=== PATIENT | female | born 1930 | race Caucasian/White ===

== ENCOUNTER 2020-08-20 22:11 | Inpatient (IN) | payer MEDICARE, BC ==
[2020-08-20] MEDS ORDERED: NORMAL SALINE 1000 ML 1,000 ML IV ONE (22:33)
--- NOTE | 2020-08-20 22:37 | ER Document Report ---
ED General <BRIGHT DIAMOND - Last Filed: 08/21/20 06:07> <HARRY FLORES - Last Filed: 08/22/20 02:02> - General Chief Complaint: Low Blood Pressure Stated Complaint: LOW BLOOD PRESSURE Time Seen by Provider: 08/20/20 22:24 Notes: Patient is an 89-year-old female that comes from home by EMS for chief complaint of vomiting, diarrhea, nicky pain, passing out at home. Patient was initially hypotensive in the 70s, EMS gave 1 L bolus of normal saline and started her on Levophed. Upon arrival nursing staff has stopped Levophed and systolic blood pressure is in the 90s. She denies any other complaints. Patient has a history of leukemia, she is on oral chemotherapy, she states she has not eaten anything for the past 3 days because she has no appetite, she states that she vomited once yesterday and then started vomiting again this evening, she states that she felt constipated and bloated so she took some MiraLAX today as well, she states she started having diarrhea and had multiple episodes tonight. She states she passed out briefly on the toilet but denies falling off the toilet or injury. She denies chest pain, fever. She has generalized abdominal soreness with some increased tenderness on the left side. Only other reported past medical history of hypertension, she follows with Dr. Sr in [place] (oncology). (BRIGHT DIAMOND) - Related Data Allergies/Adverse Reactions: alprazolam [From Xanax] Allergy (Unknown, Verified 11/22/13 11:51) Sulfa (Sulfonamide Antibiotics) Allergy (Unknown, Verified 11/22/13 11:51) iodine [Iodine] Allergy (Verified 11/22/13 11:51) COUGHING, DYES Allergy (Uncoded 11/22/13 11:51) RED FACE/EYES WATER Past Medical History - General Information source: Patient - Social History Smoking Status: Never Smoker Frequency of alcohol use: None Drug Abuse: None Lives with: Alone Family History: None - Past Medical History Cardiac Medical History: Reports: Hx Atrial Fibrillation, Hx Hypertension Comment Only: Hx Heart Attack - ??, POSSIBLE WHEN SHE HAD STROKE IN 2007 Pulmonary Medical History: Reports: Hx Asthma Denies: Hx Tuberculosis Neurological Medical History: Reports: Hx Cerebrovascular Accident Malignancy Medical History: Reports: Hx Leukemia GI Medical History: Reports: Hx Gastroesophageal Reflux Disease Past Surgical History: Reports: Hx Appendectomy, Hx Cholecystectomy, Hx Tonsillectomy, Hx Tubal Ligation. Denies: Hx Hysterectomy, Hx Mastectomy - Immunizations Hx Diphtheria, Pertussis, Tetanus Vaccination: Yes <BRIGHT DIAMOND - Last Filed: 08/21/20 06:07> Review of Systems - Review of Systems Constitutional: See HPI EENT: No symptoms reported Cardiovascular: See HPI Respiratory: No symptoms reported Gastrointestinal: See HPI Genitourinary: No symptoms reported Female Genitourinary: No symptoms reported Musculoskeletal: No symptoms reported Skin: No symptoms reported Hematologic/Lymphatic: No symptoms reported Neurological/Psychological: No symptoms reported <BRIGHT DIAMOND - Last Filed: 08/21/20 06:07> Physical Exam <BRIGHT DIAMOND - Last Filed: 08/21/20 06:07> - Vital signs Vitals: Resp BP Pulse Ox 12 94/45 L 98 08/20/20 22:14 08/20/20 22:14 08/20/20 22:14 - Notes Notes: GENERAL: Pale and ill-appearing but still alert and responsive HEAD: Normocephalic, atraumatic. EYES: Pupils equal, round, and reactive to light. Extraocular movements intact. ENT: Oral mucosa dry, tongue midline. Oropharynx unremarkable. Airway patent. NECK: Full range of motion. Supple. Trachea midline. No lymphadenopathy. LUNGS: Clear to auscultation bilaterally, no wheezes, rales, or rhonchi. No respiratory distress. Non-tender chest wall. HEART: Borderline tachycardic, irregularly irregular, no murmur ABDOMEN: Patient significantly tender in the left mid to lower abdomen with some guarding. However remaining abdomen is soft and benign. No overt distention. Bowel sounds present throughout. GENITOURINARY: Deferred EXTREMITIES: Moves all 4 extremities spontaneously. No edema, normal radial and dorsalis pedis pulses bilaterally. No cyanosis. BACK: no cervical, thoracic, lumbar midline tenderness. No saddle anesthesia, normal distal neurovascular exam. Moves all extremities in full range of motion. NEUROLOGICAL: Alert and oriented x3. Normal speech. Cranial nerves II through XII grossly intact. Strength 5/5 in all extremities. PSYCH: Normal affect, normal mood. SKIN: Pale but no rash or other abnormalities noted (BRIGHT DAIMOND) Course - Laboratory Result Diagrams: 08/20/20 22:15 08/20/20 22:15 <BRIGHT DIAMOND - Last Filed: 08/21/20 06:07> - Laboratory Result Diagrams: 08/21/20 16:25 08/20/20 22:15 <HARRY FLORES - Last Filed: 08/22/20 02:02> - Re-evaluation Re-evalutation: Patient is pale, somewhat ill-appearing, tachycardic, atrial fibrillation noted on the monitor and patient is not sure if this is chronic, however she is alert and completely oriented. She has very significant tenderness in the left mid to lower abdomen. She is hypotensive, starting IV fluids. She has been given 1 L IV fluids by EMS already. After 1.5 L of IV fluids hypotension did resolve. Tachycardia resolved. Patient is noted to have a history of atrial fibrillation in the past per records. Chemistry shows mild renal insufficiency, calcium 7.9, bicarbonate 19. Venous blood gas unremarkable. CBC concerning with white blood cells of 1, platelets of 4, hemoglobin of 6.1. I do not have any recent comparison labs since patient has been on chemotherapy. Type and screen performed. Patient did have a nonbloody bowel movement in the emergency department fortunately. She has not had any other source of bleeding. Troponin slightly elevated at 0.14. Patient very specifically states she has not had any chest pain or shortness of breath. She did have a syncopal episode with her vomiting, diarrhea. CT of the abdomen performed without contrast because of initial concerns about an allergy, this shows diverticulitis. Patient has been started on Levaquin and Flagyl, blood cultures are pending, lactic acid is not elevated. I discussed with Dr. Flores, discussed elevated troponin as well, most likely this is secondary to hypotension although this is not definite. However patient would not be a candidate for anticoagulation or intervention because of her severe thrombocytopenia and pancytopenia. Recommendation is discussing with patient's oncologist and will evaluation, transfusion with packed red blood cells and platelets. 08/21/20 00:45 Called [facility] center, pending callback from oncology. 08/21/20 01:[address] Berny Bradshaw, on-call for Dr. Sr (patient's oncologist). She states she agrees with transfusion of blood products and platelets, however she is states that she has no way of accessing the patient's records at the moment and that she is unfamiliar with the patient, she recommends that Dr. Sr can give additional advice starting at 6:30 AM and he can be contacted through their service with phone number [phone]. Patient became hypotensive again with MAP below 65 and systolic in the 70s. Patient is not responding to IV fluid resuscitation which is currently going again. Patient placed on Levophed. Unfortunately we will use our peripheral IVs (we have to good 18-gauge IVs) because of the risk of performing central line with severe thrombocytopenia. I have discussed all details with patient at length. We are still pending transfusion because of patient requiring a radiation because of chemotherapy. Will discuss with ICU for admission. Patient is also with a temperature of 100.2 now. Troponin did trend upwards but EKG was repeated without significant change. Patient has not had any chest pain on reevaluation. Patient accepted to ICU by Mohan Douglass [employer] communications programmer. CTA still pending to evaluate syncopal episode and elevated troponin after patient clarified that she is in fact not allergic to IV dye. (BRIGHT DIAMOND) - Vital Signs Vital signs: Temp Pulse Resp BP Pulse Ox 98.7 F 75 24 H 129/82 H 96 08/21/20 23:42 08/21/20 22:00 08/21/20 22:00 08/21/20 22:00 08/21/20 22:00 - Laboratory Laboratory results interpreted by me: 08/20/20 08/20/20 08/20/20 22:15 22:15 23:41 WBC 1.0 L* RBC 2.08 L Hgb 6.1 L Hct 16.9 L RDW 14.4 H Plt Count 4 L* Lymph % (Auto) 60.1 H [place] % (Auto) 15.2 H Absolute Neuts (auto) 0.2 L Seg Neutrophils % 24.6 L Sodium 130.8 L Carbon Dioxide 19 L BUN 41 H Creatinine 1.31 H Est GFR ( Amer) 46 L Est GFR (MDRD) Non-Af 38 L Glucose 143 H Calcium 7.9 L Total Bilirubin 2.6 H Direct Bilirubin 0.6 H Total Protein 5.0 L Albumin 2.8 L Lipase 18.2 L Urine Protein Urine Ketones Urine Blood Urine Urobilinogen Crossmatch See Detail 08/21/20 01:30 WBC RBC Hgb Hct RDW Plt Count Lymph % (Auto) [place] % (Auto) Absolute Neuts (auto) Seg Neutrophils % Sodium Carbon Dioxide BUN Creatinine Est GFR ( Amer) Est GFR (MDRD) Non-Af Glucose Calcium Total Bilirubin Direct Bilirubin Total Protein Albumin Lipase Urine Protein 30 H Urine Ketones TRACE H Urine Blood SMALL H Urine Urobilinogen 2.0 H Crossmatch - EKG Interpretation by Me Additional EKG results interpreted by me: EKG shows atrial fibrillation at a rate of 105, QTC 476, no T wave inversions or ST segment changes in consecutive leads (BRIGHT DIAMOND) Procedures - Ultrasound/Bedside Ultrasound/Bedside Time completed: 00:45 - 08/21/20 <HARRY FLORES - Last Filed: 08/22/20 02:02> - Ultrasound/Bedside Ultrasound/Bedside Notes: 08/21/20 00:45 Performed bedside cardiac, pulmonary, IVC, aorta ultrasound and FAST exam. Patient's myocardial function was grossly normal without any right heart strain or significant ventricular collapse with systole, no pericardial effusion. Patient's bilateral lungs showed lung sliding and predominant A-lines. IVC was plugged and did not collapse with respiration significantly. Aorta was normal caliber. FAST exam showed no free fluid. Performed ultrasound to assess patient for sources of shock and assess fluid responsiveness which did not show any additional sources of shock and showed that patient could likely tolerate additional fluid but was unlikely to be fluid responsive so pressors were started. (HARRY FLORES) Critical Care Note - Critical Care Note Total time excluding time spent on procedures (mins): 45 - Septic shock, pancytopenia, symptomatic anemia <BRIGHT DIAMOND - Last Filed: 08/21/20 06:07> - Critical Care Note Comments: Please allow 45 minutes of critical care time for evaluation and management of patient with septic shock, acute diverticulitis, leukemia with pancytopenia, symptomatic anemia requiring transfusion. Interventions including IV antibiotics, IV fluid resuscitation, vasopressor, blood and platelet transfusion. Time spent discussing with oncology, time spent discussing with patient, time spent performing multiple reevaluations, time spent admitting to the ICU. (BRIGHT DIAMOND) Discharge - Discharge Admitting Provider: Oscar (Service Consultant) Unit Admitted: ICU <BRIGHT DIAMOND - Last Filed: 08/21/20 06:07> <HARRY FLORES - Last Filed: 08/22/20 02:02> - Discharge Clinical Impression: Pancytopenia, Acute diverticulitis, Elevated troponin Hypotension Qualifiers: Hypotension type: unspecified hypotension type Qualified Code(s): I95.9 - Hypotension, unspecified Episode of syncope Qualifiers: Syncope type: unspecified Qualified Code(s): R55 - Syncope and collapse Leukemia Qualifiers: Leukemia type: acute, unspecified type Leukemia Active/Remission status: without remission Qualified Code(s): C95.00 - Acute leukemia of unspecified cell type not having achieved remission Condition: Serious Disposition: ADMITTED INPATIENT
[2020-08-20 22:52] LABS: ALBUMIN 2.8 g/dL (3.5-5.0); ALKALINE PHOSPHATASE 69 U/L (38-126); ANION GAP 12 (5-19); ASPARTATE AMINO TRANSFERASE 27 U/L (14-36); BILIRUBIN,DIRECT 0.6 mg/dL (0.0-0.4); BILIRUBIN,TOTAL 2.6 mg/dL (0.2-1.3); BLOOD UREA NITROGEN 41 mg/dL (7-20); CALCIUM 7.9 mg/dL (8.4-10.2); CARBON DIOXIDE 19 mmol/L (22-30); CHLORIDE 100 mmol/L (98-107); GLUCOSE 143 mg/dL (75-110); POTASSIUM 3.9 mmol/L (3.6-5.0)
[2020-08-20 22:52] LABS: VENOUS BLOOD BASE EXCESS -3.6 mmol/L; VENOUS BLOOD HCO3 21.3 mmol/L (20-32); VENOUS BLOOD PCO2 37.4 mmHg (35-63); VENOUS BLOOD PH 7.37 (7.30-7.42)
[2020-08-20 22:53] LABS: ABSOLUTE LYMPHOCYTES (AUTO) 0.6 10^3/uL (0.5-4.7); ABSOLUTE MONOCYTES (AUTO) 0.2 10^3/uL (0.1-1.4); ABSOLUTE NEUT (AUTO) 0.2 10^3/uL (1.7-8.2); EOSINOPHILS % (AUTO) 0.1 % (0-6); HEMATOCRIT 16.9 % (36.0-47.0); LYMPHOCYTES % (AUTO) 60.1 % (13-45); MEAN CORPUSCULAR HEMOGLOBIN 29.1 pg (27.0-33.4); MEAN CORPUSCULAR HGB CONC 35.7 g/dL (32.0-36.0); MEAN CORPUSCULAR VOLUME 82 fl (80-97); MONOCYTES % (AUTO) 15.2 % (3-13); RED BLOOD COUNT 2.08 10^6/uL (3.72-5.28); RED CELL DISTRIBUTION WIDTH 14.4 % (11.5-14.0); SEGMENTED NEUTROPHILS % (AUTO) 24.6 % (42-78); TOTAL CELLS COUNTED % (AUTO) 100 %
[2020-08-20 23:20] LABS: HEMOGLOBIN 6.1 g/dL (12.0-15.5)
[2020-08-20 23:38] LABS: PLATELET COUNT 4 10^3/uL (150-450)
[2020-08-20 23:39] LABS: ANISOCYTOSIS SLIGHT; BURR CELLS SLIGHT; OVALOCYTES SLIGHT; PLATELET COMMENT DECREASED; POIKILOCYTOSIS SLIGHT; SCHISTOCYTES SLIGHT
[2020-08-20] MEDS ORDERED: NORMAL SALINE 500 ML IV ONE (23:41)
--- NOTE | 2020-08-20 23:59 | RADIOLOGY REPORT (SQ) ---
CLINICAL HISTORY: hypotension COMPARISON: None. TECHNIQUE: XR CHEST 1 VIEW 08/20/2020 10:33 PM CDT FINDINGS: The heart is enlarged. There are surgical clips in the left hilum. Lungs are clear without consolidation, atelectasis, mass or edema. There is no pleural effusion. There is no pneumothorax. There are no acute osseous findings. IMPRESSION: No definite pneumonia.
--- NOTE | 2020-08-21 00:20 | RADIOLOGY REPORT (SQ) ---
CLINICAL HISTORY: Left sided abd pain,vomiting COMPARISON: None. TECHNIQUE: CT ABDOMEN PELVIS WITHOUT IV CONTRAST on 08/20/2020 11:48 PM CDT This exam was performed according to our departmental dose-optimization program, which includes automated exposure control, adjustment of the mA and/or kV according to patient size and/or use of iterative reconstruction technique. FINDINGS: Lower lungs are clear. Abdomen: The liver is normal in appearance. There is no biliary dilatation. Cholecystectomy was performed. The pancreas and spleen are normal in appearance. The adrenal glands and kidneys are unremarkable. Abdominal aorta is densely calcified without aneurysm. There is no free air. There is no retroperitoneal adenopathy. Pelvis: There is moderate distal colonic diverticulosis. There is short segment thickening of the descending colon with surrounding inflammation. Urinary bladder is unremarkable. There is no free fluid. Uterus is normal in size. Appendix is not clearly seen. Skeleton: There are no acute osseous findings. No suspicious bony lesions. IMPRESSION: Mid descending colonic diverticulitis. Recommend follow-up colonoscopy to exclude an underlying mass.
[2020-08-21] MEDS ORDERED: METRONIDAZOLE 500 MG/NS RTU 500 MG/100 ML RTUPB IV ONE (00:44)
[2020-08-21] MEDS ORDERED: LEVOFLOXACIN 750 MG/D5W RTU 750 MG/150 ML RTUPB IV ONE (00:44)
[2020-08-21] MEDS ORDERED: NORMAL SALINE 250 ML IV PRN ×2 (00:50)
[2020-08-21 01:55] LABS: AMORPHOUS SEDIMENT,URINE TRACE /HPF; APPEARANCE,URINE SLIGHTLY-CLOUDY; BILIRUBIN,URINE NEGATIVE (NEGATIVE); COLOR,URINE YELLOW; GLUCOSE, URINE NEGATIVE (NEGATIVE); KETONES,URINE TRACE mg/dL (NEGATIVE); PROTEIN,URINE 30 mg/dL (NEGATIVE); URINE SPECIFIC GRAVITY 1.015
[2020-08-21] MEDS ORDERED: NORMAL SALINE 1000 ML 1,000 ML IV ONE (02:12)
[2020-08-21] MEDS ORDERED: ONDANSETRON HCL INJ/PF 4 MG/2 ML SDV IV ONE (02:13)
[2020-08-21] MEDS ORDERED: DEXTROSE 5%-WATER 250 ML with NOREPINEPHRINE BITARTRATE 4 MG IV PRN ×2 (02:33)
[2020-08-21] MEDS ORDERED: NOREPINEPHRINE BITARTRATE INJ/PF 4 MG/4 ML SDV IV ONE (02:38)
[2020-08-21] MEDS ORDERED: PROMETHAZINE HCL INJ 25 MG/1 ML VIAL IV ONE (03:08)
[2020-08-21] MEDS ORDERED: ONDANSETRON HCL INJ/PF 4 MG/2 ML SDV IV PRN (03:41)
[2020-08-21 03:51] LABS: PHOSPHORUS 3.2 mg/dL (2.5-4.5); URIC ACID 4.6 mg/dL (2.5-7.5)
[2020-08-21] MEDS ORDERED: ACETAMINOPHEN 325 MG SUPP.RECT PR ONE (04:26)
[2020-08-21] MEDS: DEXTROSE 5%-WATER 250 ML with NOREPINEPHRINE BITARTRATE 4 MG IV PRN ×6 (05:48→17:58)
--- NOTE | 2020-08-21 06:17 | RADIOLOGY REPORT (SQ) ---
EXAM DESCRIPTION: CT CHEST ANGIOGRAPHY WITH IV CONTRAST COMPLETED DATE/TME: 08/21/2020 02:34 CLINICAL HISTORY: elevating troponin, hypotension, syncope COMPARISON: None Available. TECHNIQUE: CTA of the chest obtained following the uncomplicated intravenous administration of 75 mL Omnipaque 350. 3-D/MIP reformatted images of the chest available for evaluation. FINDINGS: Chest: Pulmonary arteries: Contrast bolus is adequate.No filling defects identified in the pulmonary arteries to suggest pulmonary embolus. Enlargement of the main pulmonary artery. This can be seen with pulmonary arterial hypertension. Thyroid:No abnormalities of the visualized thyroid. Great Vessels:Great vessels have normal anatomic configuration. Thoracic Aorta: Atherosclerotic calcification of the thoracic aorta. Heart: Cardiomegaly. No significant pericardial effusion. Coronary artery atherosclerosis. Lymph Nodes:No enlarged mediastinal lymph nodes identified. Esophagus:No abnormalities of the esophagus identified. Other:No additional findings. Lungs: Patchy peripheral groundglass opacities in the right lung. Pleura:No pleural effusion or pneumothorax. Trachea/Airways:No abnormalities of the visualized trachea or airways. Bones: Degenerative endplate spondylosis. Upper Abdomen:Limited images of the upper abdomen demonstrate no definite abnormalities of visualized portions of the liver, pancreas, spleen, adrenal glands, or kidneys. Prior cholecystectomy. IMPRESSION: 1. Patchy peripheral groundglass opacities in the right lung. Imaging features can be seen with viral pneumonia, though are nonspecific and can occur with a variety of infectious and noninfectious processes. [PneInd] Reference: https://pubs.rsna.org/doi/full/10.1148/ryct.8706182211 2. Cardiomegaly with coronary artery atherosclerosis. 3. No pulmonary embolus. This exam was performed according to our departmental dose-optimization program, which includes automated exposure control, adjustment of the mA and/or kV according to patient size and/or use of iterative reconstruction technique.
--- NOTE | 2020-08-21 06:34 | CRITICAL CARE ADMISSION REPORT ---
HPI Date:: 08/21/20 Time:: 06:24 Reason for ICU Reason:: Abdominal pain, thrombocytopenia Admission Date/Time & PCP: Admission Date/Time: 08/21/20 03:49 Primary Care Provider: HPI: 89-year-old female that comes from home by EMS for chief complaint of vomiting, diarrhea, nicky pain, passing out at home. Patient was initially hypotensive in the 70s, EMS gave 1 L bolus of normal saline and started her on Levophed. Upon arrival nursing staff has stopped Levophed and systolic blood pressure is in the 90s. She denies any other complaints. Patient has a history of leukemia, she is on oral chemotherapy, she states she has not eaten anything for the past 3 days because she has no appetite, she states that she vomited once yesterday and then started vomiting again this evening, she states that she felt consti pated and bloated so she took some MiraLAX today as well, she states she started having diarrhea and had multiple episodes tonight. She states she passed out briefly on the toilet but denies falling off the toilet or injury. She denies chest pain, fever. She has generalized abdominal soreness with some increased tenderness on the left side. Only other reported past medical history of hypertension, she follows with Dr. Sr in [place] (oncology). - Diagnosis/Plan (1) Acute diverticulitis Is this a current diagnosis for this admission?: Yes Plan: Continue Levaquin and Flagyl. (2) Hypotension Qualifiers: Hypotension type: unspecified hypotension type Qualified Code(s): I95.9 - Hypotension, unspecified Is this a current diagnosis for this admission?: Yes Plan: Most likely secondary to hypovolemia Hemoglobin 6.1, awaiting 2 units of packed red blood cells which needs irradiated. (3) Leukemia Qualifiers: Leukemia type: unspecified Leukemia Active/Remission status: without remission Qualified Code(s): C95.90 - Leukemia, unspecified not having achieved remission Is this a current diagnosis for this admission?: Yes Plan: Follows with oncologist Dr. Sr in [place]. We will need to contact him for chemotherapy plan. (4) Pancytopenia Is this a current diagnosis for this admission?: Yes Plan: Patient diagnosed with leukemia, follows with oncology in [place], is currently on oral chemotherapy. WBC 1.0, platelets 4, neutrophils 0.2. Neutropenic precautions. Transfuse 1 packed platelets. (5) Anemia Qualifiers: Anemia type: other cause Other causes of anemia: antineoplastic joao motherapy Qualified Code(s): D64.81 - Anemia due to antineoplastic chemot herapy; T45.1X5A - Adverse effect of antineoplastic and immunosuppressive drugs, initial encounter Is this a current diagnosis for this admission?: Yes Plan: Hemoglobin 6.1, most likely secondary to chemotherapy agent. We will transfuse 2 units of PRBCs, and 1 pack platelets. Past Medical History Cardiac Medical History: Reports: Atrial Fibrillation, Hypertension Comment Only: Myocardial Infarction - ??, POSSIBLE WHEN SHE HAD STROKE IN 2007 Pulmonary Medical History: Reports: Asthma Denies: Tuberculosis Malignancy Medical History: Reports: Leukemia GI Medical History: Reports: Gastroesophageal Reflux Disease Hematology: Denies: Anemia, Sickle Cell Disease Past Surgical History Past Surgical History: Reports: Appendectomy, Cholecystectomy, Tonsillectomy, Tubal Ligation Denies: Amputation, Hysterectomy, Mastectomy Social/Family History - Social History Lives with: Alone Smoking Status: Never Smoker Hx Recreational Drug Use: No Hx Prescription Drug Abuse: No - Medication/Allergies Home Medications: Aspirin/Dipyridamole [Aggrenox 25 mg/200 mg Capsule SA] 1 cap.sr PO BID 03/30/12 Bupropion HCl [Wellbutrin Xl] 150 mg PO 03/30/12 Diazepam [Valium 5 Mg Tablet] 5 mg PO BID 03/30/12 Olopatadine HCl [Patanase] 30.5 gm NS DAILY PRN 03/30/12 Pravastatin Sodium [Pravachol] 40 mg PO DAILY 03/30/12 Diltiazem HCl [Diltzac Er] 120 mg PO DAILY 06/04/12 Moxifloxacin HCl [Vigamox] 3 ml OP QID 06/04/12 Nepafenac [Nevanac] 3 ml OP QID 06/04/12 Prednisolone Acetate [Inflamase 1% Oph Susp 5 Ml Bottle] 1 drop OP QID 06/04/12 Rabeprazole Sodium [Aciphex] 20 mg PO DAILY 06/04/12 Oxycodone HCl 5 mg PO Q6H #15 tablet 11/22/13 Allergies/Adverse Reactions: alprazolam [From Xanax] Allergy (Unknown, Verified 11/22/13 11:51) Sulfa (Sulfonamide Antibiotics) Allergy (Unknown, Verified 11/22/13 11:51) iodine [Iodine] Allergy (Verified 11/22/13 11:51) COUGHING, DYES Allergy (Uncoded 11/22/13 11:51) RED FACE/EYES WATER Review of Systems All systems: reviewed and no additional remarkable complaints except as stated Gastrointestinal: PRESENT: abdominal pain, bloating, nausea Physical Exam Vital Signs: Temp Pulse Resp BP Pulse Ox 100.1 F 110 H 14 102/45 L 96 08/21/20 06:01 08/20/20 22:22 08/21/20 06:01 08/21/20 05:59 08/21/20 06:01 Intake & Output 08/19/20 08/20/20 08/21/20 06:59 06:59 06:59 Intake Total 2847 Output Total 400 Balance 2447 Weight 67.7 kg Weight/Height Weight 67.7 kg Height 5 ft 3 in General appearance: PRESENT: mild distress Head exam: PRESENT: atraumatic, normocephalic Eye exam: PRESENT: PERRLA Mouth exam: PRESENT: moist Neck exam: PRESENT: full ROM Respiratory exam: PRESENT: decreased breath sounds Cardiovascular exam: PRESENT: irregular rhythm Pulses: PRESENT: normal radial pulses GI/Abdominal exam: PRESENT: hypoactive bowel sounds Extremities exam: PRESENT: full ROM Musculoskeletal exam: PRESENT: full ROM Neurological exam: PRESENT: alert, awake, oriented to person, oriented to place, oriented to time Laboratory/Radiographs Laboratory Results: 08/20/20 22:15 08/20/20 22:15 08/20/20 08/20/20 08/20/20 22:15 22:15 22:15 WBC 1.0 L* RBC 2.08 L Hgb 6.1 L Hct 16.9 L MCV 82 MCH 29.1 MCHC 35.7 RDW 14.4 H Plt Count 4 L* Seg Neutrophils % 24.6 L VBG pH VBG pCO2 VBG HCO3 VBG Base Excess Sodium 130.8 L Potassium 3.9 Chloride 100 Carbon Dioxide 19 L Anion Gap 12 BUN 41 H Creatinine 1.31 H Est GFR ( Amer) 46 L Glucose 143 H Lactic Acid Uric Acid Calcium 7.9 L Phosphorus Magnesium 2.2 Total Bilirubin 2.6 H AST 27 Alkaline Phosphatase 69 Total Protein 5.0 L Albumin 2.8 L Lipase 18.2 L TSH 2.46 Urine Color Urine Appearance Urine pH Ur Specific [place] Urine Protein Urine Glucose (UA) Urine Ketones Urine Blood Urine RBC (Auto) Blood Type Antibody Screen 08/20/20 08/20/20 08/20/20 22:15 22:41 22:41 WBC RBC Hgb Hct MCV MCH MCHC RDW Plt Count Seg Neutrophils % VBG pH 7.37 VBG pCO2 37.4 VBG HCO3 21.3 VBG Base Excess -3.6 Sodium Potassium Chloride Carbon Dioxide Anion Gap BUN Creatinine Est GFR ( Amer) Glucose Lactic Acid 1.3 Uric Acid 4.6 Calcium Phosphorus 3.2 Magnesium Cancelled Total Bilirubin AST Alkaline Phosphatase Total Protein Albumin Lipase TSH Urine Color Urine Appearance Urine pH Ur Specific [place] Urine Protein Urine Glucose (UA) Urine Ketones Urine Blood Urine RBC (Auto) Blood Type Antibody Screen 08/20/20 08/21/20 08/21/20 23:41 01:30 01:58 WBC RBC Hgb Hct MCV MCH MCHC RDW Plt Count Seg Neutrophils % VBG pH VBG pCO2 VBG HCO3 VBG Base Excess Sodium Potassium Chloride Carbon Dioxide Anion Gap BUN Creatinine Est GFR ( Amer) Glucose Lactic Acid 1.0 Uric Acid Calcium Phosphorus Magnesium Total Bilirubin AST Alkaline Phosphatase Total Protein Albumin Lipase TSH Urine Color YELLOW Urine Appearance SLIGHTLY-CLOUDY Urine pH 5.0 Ur Specific [place] 1.015 Urine Protein 30 H Urine Glucose (UA) NEGATIVE Urine Ketones TRACE H Urine Blood SMALL H Urine RBC (Auto) 1 Blood Type A POSITIVE Antibody Screen NEGATIVE 08/20/20 08/21/20 22:15 01:19 Troponin I 0.143 0.235 Impressions: Chest X-Ray 08/20/20 22:33 IMPRESSION: No definite pneumonia. Abdomen/Pelvis CT 08/20/20 23:48 IMPRESSION: Mid descending colonic diverticulitis. Recommend follow-up colonoscopy to exclude an underlying mass. Chest/Abdomen CTA 08/21/20 02:34 IMPRESSION: 1. Patchy peripheral groundglass opacities in the right lung. Imaging features can be seen with viral pneumonia, though are nonspecific and can occur with a variety of infectious and noninfectious processes. [PneInd] Reference: https://pubs.rsna.org/doi/full/10.1148/ryct.0425267021 2. Cardiomegaly with coronary artery atherosclerosis. 3. No pulmonary embolus. This exam was performed according to our departmental dose-optimization program, which includes automated exposure control, adjustment of the mA and/or kV according to patient size and/or use of iterative reconstruction technique. All labs, radiographs, diagnostic studies and EKGs were personally reviewed: Yes In addition, reports of radiographic and diagnostic studies were read: Yes Critical Time Critical Time (minutes): 60 -: The care of a critically ill patient is dynamic. This note represents a static moment in the admission process. Orders and treatments may be given simultaneously and urgently, and time is not retail customer service representative of the treatment process. This patient requires Critical Care secondary to life threatening organ or limb dysfunction. Without Critical Care services, the patient is at risk for increased mortality and morbidity.
--- NOTE | 2020-08-21 07:44 | EKG REPORT ---
SEVERITY:- ABNORMAL ECG - ATRIAL FIBRILLATION LEFT ANTERIOR FASCICULAR BLOCK PROBABLE ANTEROSEPTAL INFARCT, AGE INDETERM : Confirmed by: Gianni Avery MD 21-Aug-2020 07:44:12
--- NOTE | 2020-08-21 07:45 | EKG REPORT ---
SEVERITY:- ABNORMAL ECG - ATRIAL FIBRILLATION MULTIPLE PREMATURE COMPLEXES, VENT. LEFT ANTERIOR FASCICULAR BLOCK PROBABLE ANTEROSEPTAL INFARCT, AGE INDETERM : Confirmed by: Gianni Avery MD 21-Aug-2020 07:44:47
--- NOTE | 2020-08-21 08:45 | PDOC CONSULTATION ---
Consultation Consult Date: 08/21/20 Provider Consulted: JODY JAFFE Consult reason:: Hematology Oncology consultation was requested for pancytopenia. History of Present Illness Admission Date/PCP: 08/21/20 03:49 History of Present Illness: WALLY SALINAS is a 89 year old female who follows with Dr. 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 She was started on a new oral form of acitadine which is given for 5 days every 28 days. She completed her second cycle of this medication last week. She presented to the ED with a 3 day history of decreased appetite, abdominal pain and diarrhea. She states that she has been taking her Axid and believe her diverticulitis has "flaired up." She became quite weak but denies dyspnea or fever. She was found in the ED to have hypotension, was started on Levophed, and also found to have pancytopenia. She is currently in the ICU, but is awake, talkative, and able to answer all questions. The Levophed has been stopped and her BP is now stable after IV fluids. Past Medical History Cardiac Medical History: Reports: Atrial Fibrillation, Hypertension Comment Only: Myocardial Infarction - ??, POSSIBLE WHEN SHE HAD STROKE IN 2007 Pulmonary Medical History: Reports: Asthma Denies: Tuberculosis Malignancy Medical History: Reports: Leukemia GI Medical History: Reports: Gastroesophageal Reflux Disease Hematology: Denies: Anemia, Sickle Cell Disease Past Surgical History Past Surgical History: Reports: Appendectomy, Cholecystectomy, Tonsillectomy, Tubal Ligation Denies: Amputation, Hysterectomy, Mastectomy Social History Lives with: Alone Smoking Status: Former Smoker Frequency of Alcohol Use: None Hx Recreational Drug Use: No Hx Prescription Drug Abuse: No - Advance Directive Resuscitation Status: Do Not Resuscitate Surrogate healthcare decision maker:: daughter or son Family History Family History: None Parental Family History Reviewed: Yes Children Family History Reviewed: No Sibling(s) Family History Reviewed.: Yes Medication/Allergy Home Medications: Aspirin/Dipyridamole [Aggrenox 25 mg/200 mg Capsule SA] 1 cap.sr PO BID 03/30/12 Bupropion HCl [Wellbutrin Xl] 150 mg PO 03/30/12 Diazepam [Valium 5 Mg Tablet] 5 mg PO BID 03/30/12 Olopatadine HCl [Patanase] 30.5 gm NS DAILY PRN 03/30/12 Pravastatin Sodium [Pravachol] 40 mg PO DAILY 03/30/12 Diltiazem HCl [Diltzac Er] 120 mg PO DAILY 06/04/12 Moxifloxacin HCl [Vigamox] 3 ml OP QID 06/04/12 Nepafenac [Nevanac] 3 ml OP QID 06/04/12 Prednisolone Acetate [Inflamase 1% Oph Susp 5 Ml Bottle] 1 drop OP QID 06/04/12 Rabeprazole Sodium [Aciphex] 20 mg PO DAILY 06/04/12 Oxycodone HCl 5 mg PO Q6H #15 tablet 11/22/13 Allergies/Adverse Reactions: alprazolam [From Xanax] Allergy (Unknown, Verified 11/22/13 11:51) Sulfa (Sulfonamide Antibiotics) Allergy (Unknown, Verified 11/22/13 11:51) iodine [Iodine] Allergy (Verified 11/22/13 11:51) COUGHING, DYES Allergy (Uncoded 11/22/13 11:51) RED FACE/EYES WATER Review of Systems Constitutional: ABSENT: fever(s), headache(s) Eyes: ABSENT: visual disturbances Ears: ABSENT: hearing changes Nose, Mouth, and Throat: ABSENT: sore throat Cardiovascular: ABSENT: chest pain Respiratory: PRESENT: dyspnea Gastrointestinal: PRESENT: abdominal pain, diarrhea, nausea, vomiting Genitourinary: ABSENT: dysuria Integumentary: ABSENT: rash Neurological: PRESENT: dizziness, weakness Hematologic/Lymphatic: ABSENT: easy bleeding Physical Exam Vital Signs: Temp Pulse Resp BP Pulse Ox 99.2 F 83 14 98/66 L 95 08/21/20 08:18 08/21/20 08:18 08/21/20 08:18 08/21/20 08:18 08/21/20 08:18 Intake & Output 08/20/20 08/21/20 08/22/20 06:59 06:59 06:59 Intake Total 2847 239 Output Total 400 250 Balance 2447 -11 Weight 69.5 kg 69.5 kg General appearance: PRESENT: no acute distress, well-developed, well-nourished Head exam: PRESENT: normocephalic Eye exam: PRESENT: EOMI Mouth exam: PRESENT: dry mucosa Teeth exam: PRESENT: poor dentation Neck exam: ABSENT: lymphadenopathy, tenderness Respiratory exam: PRESENT: clear to auscultation mayte, unlabored Cardiovascular exam: PRESENT: other - regularly irregular with trigeminy. No murmurs. GI/Abdominal exam: PRESENT: soft, tenderness - LLQ. Extremities exam: ABSENT: pedal edema Musculoskeletal exam: PRESENT: normal inspection Neurological exam: PRESENT: alert, awake, oriented to person, oriented to place Psychiatric exam: PRESENT: appropriate affect Skin exam: PRESENT: pallor Results Laboratory Results: 08/20/20 22:15 08/20/20 22:15 08/20/20 08/20/20 08/20/20 22:15 22:15 22:15 WBC 1.0 L* RBC 2.08 L Hgb 6.1 L Hct 16.9 L MCV 82 MCH 29.1 MCHC 35.7 RDW 14.4 H Plt Count 4 L* Seg Neutrophils % 24.6 L VBG pH VBG pCO2 VBG HCO3 VBG Base Excess Sodium 130.8 L Potassium 3.9 Chloride 100 Carbon Dioxide 19 L Anion Gap 12 BUN 41 H Creatinine 1.31 H Est GFR ( Amer) 46 L Glucose 143 H Lactic Acid Uric Acid Calcium 7.9 L Phosphorus Magnesium 2.2 Total Bilirubin 2.6 H AST 27 Alkaline Phosphatase 69 Total Protein 5.0 L Albumin 2.8 L Lipase 18.2 L TSH 2.46 Urine Color Urine Appearance Urine pH Ur Specific [place] Urine Protein Urine Glucose (UA) Urine Ketones Urine Blood Urine RBC (Auto) Blood Type Antibody Screen 08/20/20 08/20/20 08/20/20 22:15 22:41 22:41 WBC RBC Hgb Hct MCV MCH MCHC RDW Plt Count Seg Neutrophils % VBG pH 7.37 VBG pCO2 37.4 VBG HCO3 21.3 VBG Base Excess -3.6 Sodium Potassium Chloride Carbon Dioxide Anion Gap BUN Creatinine Est GFR ( Amer) Glucose Lactic Acid 1.3 Uric Acid 4.6 Calcium Phosphorus 3.2 Magnesium Cancelled Total Bilirubin AST Alkaline Phosphatase Total Protein Albumin Lipase TSH Urine Color Urine Appearance Urine pH Ur Specific [place] Urine Protein Urine Glucose (UA) Urine Ketones Urine Blood Urine RBC (Auto) Blood Type Antibody Screen 08/20/20 08/21/20 08/21/20 23:41 01:30 01:58 WBC RBC Hgb Hct MCV MCH MCHC RDW Plt Count Seg Neutrophils % VBG pH VBG pCO2 VBG HCO3 VBG Base Excess Sodium Potassium Chloride Carbon Dioxide Anion Gap BUN Creatinine Est GFR ( Amer) Glucose Lactic Acid 1.0 Uric Acid Calcium Phosphorus Magnesium Total Bilirubin AST Alkaline Phosphatase Total Protein Albumin Lipase TSH Urine Color YELLOW Urine Appearance SLIGHTLY-CLOUDY Urine pH 5.0 Ur Specific [place] 1.015 Urine Protein 30 H Urine Glucose (UA) NEGATIVE Urine Ketones TRACE H Urine Blood SMALL H Urine RBC (Auto) 1 Blood Type A POSITIVE Antibody Screen NEGATIVE 08/20/20 08/21/20 22:15 01:19 Troponin I 0.143 0.235 Impressions: Chest X-Ray 08/20/20 22:33 IMPRESSION: No definite pneumonia. Abdomen/Pelvis CT 08/20/20 23:48 IMPRESSION: Mid descending colonic diverticulitis. Recommend follow-up colonoscopy to exclude an underlying mass. Chest/Abdomen CTA 08/21/20 02:34 IMPRESSION: 1. Patchy peripheral groundglass opacities in the right lung. Imaging features can be seen with viral pneumonia, though are nonspecific and can occur with a variety of infectious and noninfectious processes. [PneInd] Reference: https://pubs.rsna.org/doi/full/10.1148/ryct.1357991459 2. Cardiomegaly with coronary artery atherosclerosis. 3. No pulmonary embolus. This exam was performed according to our departmental dose-optimization program, which includes automated exposure control, adjustment of the mA and/or kV according to patient size and/or use of iterative reconstruction technique. Status: Image reviewed by me Assessment & Plan - Diagnosis (1) Acute diverticulitis Is this a current diagnosis for this admission?: Yes Plan: Antibiotics have been started. Await C.Dif studies. (2) Hypotension Qualifiers: Hypotension type: unspecified hypotension type Qualified Code(s): I95.9 - Hypotension, unspecified Is this a current diagnosis for this admission?: Yes Plan: Improved with IV fluids. Should also improve with blood. Anti-hypertensive meds are on hold. (3) Leukemia Qualifiers: Leukemia type: acute, unspecified type Leukemia Active/Remission status: without remission Qualified Code(s): C95.00 - Acute leukemia of unspecified cell type not having achieved remission Is this a current diagnosis for this admission?: Yes Plan: She is not due to restart her chemotherapy for a few more weeks. Growth factors are contraindicated in this situation. Will monitor for blasts in the peripheral blood and if no improvement in counts, consider repeat bone marrow biopsy. (4) Pancytopenia Is this a current diagnosis for this admission?: Yes Plan: Transfusion support to keep PLT >10 and HGB >8. - Plan Summary Plan Summary: Patient was discussed with both Dr. Sr and Dr. Acosta.
[2020-08-21] MEDS: PANTOPRAZOLE SODIUM 40 MG VIAL IV SCH (10:00)
[2020-08-21 10:16] LABS: PATH REVIEW PATHOLOGIST REVIEWED
[2020-08-21] MEDS ORDERED: ONDANSETRON HCL 8 MG TABLET PO PRN (12:46)
[2020-08-21] MEDS ORDERED: (PENDING PHARMACY ID) (Rabeprazole Sodium [Aciphex] 20 MG) PO SCH ×2 (13:00→14:00)
[2020-08-21] MEDS ORDERED: OLOPATADINE HCL NASL SCH (13:30)
[2020-08-21] MEDS: HYDROCORTISONE SOD SUCCINATE INJ/PF 100 MG/2 ML SDV IV SCH ×2 (14:22→22:03)
[2020-08-21] MEDS: BUPROPION HCL 75 MG TABLET PO SCH ×2 (14:22→22:04)
[2020-08-21 16:38] LABS: ABSOLUTE LYMPHOCYTES (AUTO) 0.5 10^3/uL (0.5-4.7); ABSOLUTE MONOCYTES (AUTO) 0.2 10^3/uL (0.1-1.4); ABSOLUTE NEUT (AUTO) 0.2 10^3/uL (1.7-8.2); EOSINOPHILS % (AUTO) 0.2 % (0-6); MEAN CORPUSCULAR HEMOGLOBIN 30.2 pg (27.0-33.4); MEAN CORPUSCULAR HGB CONC 36.4 g/dL (32.0-36.0); MEAN CORPUSCULAR VOLUME 83 fl (80-97); MONOCYTES % (AUTO) 23.5 % (3-13); RED BLOOD COUNT 2.65 10^6/uL (3.72-5.28); SEGMENTED NEUTROPHILS % (AUTO) 23.3 % (42-78); TOTAL CELLS COUNTED % (AUTO) 100 %
[2020-08-21 17:25] LABS: PLATELET COUNT 41 10^3/uL (150-450)
[2020-08-21 17:34] LABS: ANISOCYTOSIS SLIGHT; BURR CELLS SLIGHT
[2020-08-21 17:35] LABS: OVALOCYTES 1+; PLATELET COMMENT DECREASED
[2020-08-21] MEDS ORDERED: OLOPATADINE HCL NS SCH (18:00)
[2020-08-22] MEDS ORDERED: DIPHENHYDRAMINE HCL 25 MG CAPSULE PO ONE (01:18)
[2020-08-22] MEDS ORDERED: DIPHENHYDRAMINE HCL 25 MG/10 ML UDC PO ONE (01:20)
[2020-08-22] MEDS ORDERED: DIPHENHYDRAMINE HCL 50 MG/ML VIAL IV ONE (01:36)
[2020-08-22 04:06] LABS: HEMATOCRIT 23.6 % (36.0-47.0); HEMOGLOBIN 8.6 g/dL (12.0-15.5); MEAN CORPUSCULAR HGB CONC 36.2 g/dL (32.0-36.0); MEAN CORPUSCULAR VOLUME 83 fl (80-97); RED BLOOD COUNT 2.85 10^6/uL (3.72-5.28); RED CELL DISTRIBUTION WIDTH 14.8 % (11.5-14.0)
[2020-08-22 04:10] LABS: PLATELET COUNT 36 10^3/uL (150-450)
[2020-08-22 04:20] LABS: ALBUMIN 2.8 g/dL (3.5-5.0); ALKALINE PHOSPHATASE 69 U/L (38-126); ANION GAP 9 (5-19); ASPARTATE AMINO TRANSFERASE 25 U/L (14-36); BILIRUBIN,DIRECT 0.3 mg/dL (0.0-0.4); BILIRUBIN,TOTAL 1.9 mg/dL (0.2-1.3); BLOOD UREA NITROGEN 27 mg/dL (7-20); CARBON DIOXIDE 18 mmol/L (22-30); CHLORIDE 107 mmol/L (98-107); GLUCOSE 150 mg/dL (75-110); PHOSPHORUS 2.6 mg/dL (2.5-4.5); POTASSIUM 3.9 mmol/L (3.6-5.0)
[2020-08-22 04:28] LABS: ABSOLUTE MONOCYTES # (MANUAL) 0.2 10^3/uL (0.1-1.4); BAND NEUTROPHILS % (MANUAL) 10 % (3-5); BASOPHILS % (MANUAL) 0 % (0-2); EOSINOPHILS % (MANUAL) 0 % (0-6); LYMPHOCYTES % (MANUAL) 32 % (13-45); MONOCYTES % (MANUAL) 12 % (3-13); SEGMENTED NEUTROPHILS % (MAN) 10 % (42-78); TOTAL CELLS COUNTED 50
[2020-08-22] MEDS: DEXTROSE 5%-WATER 250 ML with NOREPINEPHRINE BITARTRATE 4 MG IV PRN ×2 (04:28)
[2020-08-22 04:32] LABS: ANISOCYTOSIS SLIGHT; BURR CELLS SLIGHT; PLATELET COMMENT DECREASED; POIKILOCYTOSIS 1+; ROULEAUX 1+
[2020-08-22 04:38] LABS: WHITE BLOOD COUNT 1.4 10^3/uL (4.0-10.5)
[2020-08-22] MEDS: HYDROCORTISONE SOD SUCCINATE INJ/PF 100 MG/2 ML SDV IV SCH ×3 (05:49→22:37)
[2020-08-22] MEDS ORDERED: ONDANSETRON HCL INJ/PF 4 MG/2 ML SDV IV PRN (08:00)
[2020-08-22] MEDS: PANTOPRAZOLE SODIUM 40 MG VIAL IV SCH (09:32)
[2020-08-22] MEDS: BUPROPION HCL 75 MG TABLET PO SCH ×2 (09:32→22:37)
[2020-08-22] MEDS: LINEZOLID 600 MG/300 ML RTUPB IV SCH ×2 (09:45→22:38)
[2020-08-22] MEDS ORDERED: (PENDING PHARMACY ID) (Bupropion Hcl [Wellbutrin Xl 150 Mg 24hr Tablet] 150 MG) PO SCH (10:00)
--- NOTE | 2020-08-22 10:52 | PDOC CRITICAL CARE PROG REPORT ---
General Date:: 08/22/20 ICU Day:: 2 Ventilator Day:: 2 Hospital Day:: 2 Resuscitation Status: Do Not Resuscitate Events in the past 12 to 24 Hours:: Coming off levophed. PLT and Hgb better with transfusion. Review of systems relevant to events:: Hemetopoetic. Reason for ICU Addmission:: Abdominal pain, thrombocytopenia - Medications: Medications reviewed and adjusted accordingly: Yes Vasopressors:: Levophed Sedation:: None Physical Exam Vital Signs: Temp Pulse Resp BP Pulse Ox 98.1 F 110 H 20 114/67 100 08/22/20 10:00 08/22/20 10:00 08/22/20 10:07 08/22/20 10:07 08/22/20 10:07 Intake & Output 08/21/20 08/22/20 08/23/20 06:59 06:59 06:59 Intake Total 2847 1487 129 Output Total 400 1720 85 Balance 2447 -233 44 Weight 69.5 kg 70.1 kg Weight/Height Weight 70.1 kg Height 5 ft 3 in General appearance: PRESENT: no acute distress, cooperative Head exam: PRESENT: atraumatic, normocephalic Eye exam: PRESENT: conjunctiva pink, EOMI, PERRLA. ABSENT: scleral icterus Ear exam: PRESENT: normal external ear exam Mouth exam: PRESENT: moist, tongue midline Respiratory exam: PRESENT: clear to auscultation mayte. ABSENT: rales, rhonchi, wheezes Cardiovascular exam: PRESENT: tachycardia - Mild GI/Abdominal exam: PRESENT: normal bowel sounds, soft. ABSENT: distended, guarding, mass, organolmegaly, rebound, tenderness Rectal exam: PRESENT: deferred Gentrourinary exam: PRESENT: indwelling catheter Extremities exam: PRESENT: full ROM. ABSENT: calf tenderness, clubbing, pedal edema Musculoskeletal exam: PRESENT: normal inspection Neurological exam: PRESENT: alert, awake, oriented to person, oriented to place, oriented to time, oriented to situation, CN II-XII grossly intact. ABSENT: motor sensory deficit Psychiatric exam: PRESENT: appropriate affect, normal mood. ABSENT: homicidal ideation, suicidal ideation Skin exam: PRESENT: dry, intact, warm. ABSENT: cyanosis, rash Laboratory/Radiographs Laboratory Results: 08/22/20 03:42 08/22/20 03:42 10/08/21/20 08/22/20 23:41 16:25 03:42 WBC 1.0 L* 1.4 L* RBC 2.65 L 2.85 L Hgb 8.0 L 8.6 L Hct 22.0 L 23.6 L MCV 83 83 MCH 30.2 30.0 MCHC 36.4 H 36.2 H RDW 15.0 H 14.8 H Plt Count 41 L D 36 L Seg Neutrophils % 23.3 L Not Reportable Sodium Potassium Chloride Carbon Dioxide Anion Gap BUN Creatinine Est GFR ( Amer) Glucose Calcium Phosphorus Magnesium Total Bilirubin AST Alkaline Phosphatase Total Protein Albumin Blood Type A POSITIVE Antibody Screen NEGATIVE 08/22/20 03:42 WBC RBC Hgb Hct MCV MCH MCHC RDW Plt Count Seg Neutrophils % Sodium 134.3 L Potassium 3.9 Chloride 107 Carbon Dioxide 18 L Anion Gap 9 BUN 27 H Creatinine 0.81 Est GFR ( Amer) > 60 Glucose 150 H Calcium 8.0 L Phosphorus 2.6 Magnesium 2.3 Total Bilirubin 1.9 H AST 25 Alkaline Phosphatase 69 Total Protein 5.0 L Albumin 2.8 L Blood Type Antibody Screen 08/20/20 22:41 Blood Blood Culture (PCR) - Final Staphylococcus Species 08/20/20 23:41 Blood Blood Culture (PCR) - Final Staphylococcus Species 08/20/20 08/21/20 22:15 01:19 Troponin I 0.143 0.235 Impressions: Chest X-Ray 08/20/20 22:33 IMPRESSION: No definite pneumonia. Abdomen/Pelvis CT 08/20/20 23:48 IMPRESSION: Mid descending colonic diverticulitis. Recommend follow-up colonoscopy to exclude an underlying mass. Chest/Abdomen CTA 08/21/20 02:34 IMPRESSION: 1. Patchy peripheral groundglass opacities in the right lung. Imaging features can be seen with viral pneumonia, though are nonspecific and can occur with a variety of infectious and noninfectious processes. [PneInd] Reference: https://pubs.rsna.org/doi/full/10.1148/ryct.0385674120 2. Cardiomegaly with coronary artery atherosclerosis. 3. No pulmonary embolus. This exam was performed according to our departmental dose-optimization program, which includes automated exposure control, adjustment of the mA and/or kV according to patient size and/or use of iterative reconstruction technique. All labs, radiographs, diagnostic studies and EKGs were personally reviewed: Yes In addition, reports of radiographic and diagnostic studies were read: Yes Assessment and Plan - Diagnosis (1) Pancytopenia Is this a current diagnosis for this admission?: Yes Plan: As a consequence of CTx for AML. PLTs up to 36 with transfusion. Hgb 8.6 with transfusion. WBC 1.4 higher. (2) Nausea Is this a current diagnosis for this admission?: Yes Plan: Resolved. Pt says she needs clear benedryl before eating due to food and dye allergies. So ordered. (3) Hypotension Qualifiers: Hypotension type: unspecified hypotension type Qualified Code(s): I95.9 - Hypotension, unspecified Is this a current diagnosis for this admission?: Yes Plan: She is somewhat hypoadrenal and stress steroids ordered hope to get off levophed and downgrade today. (4) Bacteremia Is this a current diagnosis for this admission?: Yes Plan: Both blood cultures growing GPC in clusters, 2/2 bottles. On linezolid pending final results. She is immunocompromised, has AML, and may not mount a fever. Plan Summary: Continue to wean off levophed. Critical Time Critical Time (minutes): 35 Level of Care: ICU Anticipated discharge: Home Anticipated DC Timeframe: Other -: 1. The care of a critical patient is a dynamic process. This note is a account representative synopsis but static in nature. The timeframe for treatments given in order is not necessarily the actual time these treatments may have been done. 2. This patient requires critical care secondary to ongoing requirements for therapy not offered or safe outside the critical care environment. Transfer to a lower level of care will result in altered life or limb morbidity and mortality. 3. Multidisciplinary rounds completed. 4. ABCDE bundle addressed.
[2020-08-22] MEDS: DIPHENHYDRAMINE HCL 25 MG/10 ML UDC PO SCH ×3 (13:25→22:53)
[2020-08-22] MEDS: DILTIAZEM HCL 120 MG CAP.SR.24H PO SCH (14:31)
[2020-08-23] MEDS: HYDROCORTISONE SOD SUCCINATE INJ/PF 100 MG/2 ML SDV IV SCH ×3 (05:12→21:43)
[2020-08-23] MEDS: DIPHENHYDRAMINE HCL 25 MG/10 ML UDC PO SCH ×3 (05:13→21:54)
[2020-08-23 06:42] LABS: HEMATOCRIT 23.1 % (36.0-47.0); HEMOGLOBIN 8.3 g/dL (12.0-15.5); MEAN CORPUSCULAR HEMOGLOBIN 29.9 pg (27.0-33.4); MEAN CORPUSCULAR HGB CONC 35.8 g/dL (32.0-36.0); MEAN CORPUSCULAR VOLUME 84 fl (80-97); RED BLOOD COUNT 2.76 10^6/uL (3.72-5.28); RED CELL DISTRIBUTION WIDTH 15.1 % (11.5-14.0)
[2020-08-23 06:59] LABS: ALBUMIN 2.6 g/dL (3.5-5.0); ALKALINE PHOSPHATASE 63 U/L (38-126); ANION GAP 9 (5-19); ASPARTATE AMINO TRANSFERASE 22 U/L (14-36); BILIRUBIN,DIRECT 0.3 mg/dL (0.0-0.4); BLOOD UREA NITROGEN 28 mg/dL (7-20); CALCIUM 8.2 mg/dL (8.4-10.2); CARBON DIOXIDE 20 mmol/L (22-30); CHLORIDE 105 mmol/L (98-107); GLUCOSE 170 mg/dL (75-110); PHOSPHORUS 2.2 mg/dL (2.5-4.5); POTASSIUM 4.1 mmol/L (3.6-5.0); TOTAL PROTEIN 4.8 g/dL (6.3-8.2)
[2020-08-23 07:06] LABS: PLATELET COUNT 28 10^3/uL (150-450)
[2020-08-23 07:18] LABS: ABSOLUTE LYMPHOCYTES# (MANUAL) 0.4 10^3/uL (0.5-4.7); ABSOLUTE MONOCYTES # (MANUAL) 0.2 10^3/uL (0.1-1.4); BAND NEUTROPHILS % (MANUAL) 1 % (3-5); BASOPHILS % (MANUAL) 0 % (0-2); EOSINOPHILS % (MANUAL) 0 % (0-6); LYMPHOCYTES % (MANUAL) 51 % (13-45); METAMYELOCYTES % (MANUAL) 2 % (0-1); MONOCYTES % (MANUAL) 22 % (3-13); MYELOCYTES % (MANUAL) 1 % (0); PROMYELOCYTES % (MANUAL) 1 % (0); SEGMENTED NEUTROPHILS % (MAN) 22 % (42-78); TOTAL CELLS COUNTED 100
[2020-08-23 07:30] LABS: WHITE BLOOD COUNT 0.8 10^3/uL (4.0-10.5)
[2020-08-23 07:50] LABS: PLATELET COMMENT DECREASED
--- NOTE | 2020-08-23 08:26 | PDOC PROGRESS REPORT ---
Subjective Progress Note for:: 08/23/20 Subjective:: Patient states that she has not gotten any sleep because her Welbutrin needs to be given in the morning, or it keeps her awake. She has no strength but was able to sit in a chair for a while yesterday. She is worried that she may need a rehab stay on discharge. She wants to make sure her children will be allowed to visit over the next few days. Reason For Visit: DIVERTICULITIS Physical Exam Vital Signs: Temp Pulse Resp BP Pulse Ox 98.8 F 102 H 18 126/69 H 91 L 08/22/20 20:40 08/23/20 02:00 08/22/20 20:40 08/22/20 20:40 08/22/20 20:40 Intake & Output 08/22/20 08/23/20 08/24/20 06:59 06:59 06:59 Intake Total 1487 1513 Output Total 1720 1200 Balance -233 313 Weight 70.1 kg 73.4 kg General appearance: PRESENT: no acute distress Head exam: PRESENT: normocephalic Respiratory exam: PRESENT: unlabored Extremities exam: ABSENT: pedal edema Neurological exam: PRESENT: alert, awake, oriented to person, oriented to place, oriented to time, oriented to situation Psychiatric exam: PRESENT: appropriate affect Skin exam: PRESENT: normal color Results Laboratory Results: 08/23/20 05:37 08/23/20 05:37 08/23/20 08/23/20 05:37 05:37 WBC 0.8 L* D RBC 2.76 L Hgb 8.3 L Hct 23.1 L MCV 84 MCH 29.9 MCHC 35.8 RDW 15.1 H Plt Count 28 L* Seg Neutrophils % Not Reportable Sodium 134.1 L Potassium 4.1 Chloride 105 Carbon Dioxide 20 L Anion Gap 9 BUN 28 H Creatinine 0.72 Est GFR ( Amer) > 60 Glucose 170 H Calcium 8.2 L Phosphorus 2.2 L Magnesium 2.2 Total Bilirubin 1.0 AST 22 Alkaline Phosphatase 63 Total Protein 4.8 L Albumin 2.6 L 08/20/20 22:41 Blood Blood Culture (PCR) - Final Staphylococcus Species 08/20/20 23:41 Blood Blood Culture (PCR) - Final Staphylococcus Species 08/20/20 08/21/20 22:15 01:19 Troponin I 0.143 0.235 Impressions: Chest X-Ray 08/20/20 22:33 IMPRESSION: No definite pneumonia. Abdomen/Pelvis CT 08/20/20 23:48 IMPRESSION: Mid descending colonic diverticulitis. Recommend follow-up colonoscopy to exclude an underlying mass. Chest/Abdomen CTA 08/21/20 02:34 IMPRESSION: 1. Patchy peripheral groundglass opacities in the right lung. Imaging features can be seen with viral pneumonia, though are nonspecific and can occur with a variety of infectious and noninfectious processes. [PneInd] Reference: https://pubs.[facility]na.org/doi/full/10.1148/ryct.0233044937 2. Cardiomegaly with coronary artery atherosclerosis. 3. No pulmonary embolus. This exam was performed according to our departmental dose-optimization program, which includes automated exposure control, adjustment of the mA and/or kV according to patient size and/or use of iterative reconstruction technique. Assessment & Plan - Diagnosis (1) Acute diverticulitis Is this a current diagnosis for this admission?: Yes Plan: Blood cultures were also positive. She is on Zyvox. 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 Pancytopenia is most likely due to the chemotherapy she was on and hopefully will resolve within 7 days. However, if continues, may need to discuss further leukemia treatment with Dr. Sr (her primary oncologist in [place]). We discussed the fact that subsequent doses may need to be reduced or delayed if counts have not recovered. (4) Pancytopenia Is this a current diagnosis for this admission?: Yes - Time Time Spent with patient: Less than 15 minutes
[2020-08-23] MEDS: DILTIAZEM HCL 120 MG CAP.SR.24H PO SCH (09:29)
[2020-08-23] MEDS: PANTOPRAZOLE SODIUM 40 MG VIAL IV SCH (09:29)
[2020-08-23] MEDS: LINEZOLID 600 MG/300 ML RTUPB IV SCH ×2 (09:30→21:44)
[2020-08-23] MEDS: SUCRALFATE 1 GM TABLET PO SCH ×2 (13:27→21:44)
--- NOTE | 2020-08-23 19:32 | PDOC PROGRESS REPORT ---
Subjective Progress Note for:: 08/23/20 Subjective:: Patient feeling somewhat poorly. She transferred out of the ICU last night. Appetite is poor. Reason For Visit: DIVERTICULITIS Physical Exam Vital Signs: Temp Pulse Resp BP Pulse Ox 98.0 F 81 19 119/52 L 100 08/23/20 10:00 08/23/20 08:09 08/23/20 08:09 08/23/20 08:09 08/23/20 08:09 Intake & Output 08/22/20 08/23/20 08/24/20 06:59 06:59 06:59 Intake Total 1487 1513 800 Output Total 1720 1200 450 Balance -233 313 350 Weight 70.1 kg 73.4 kg General appearance: PRESENT: cooperative, mild distress, well-developed Head exam: PRESENT: atraumatic, normocephalic Ear exam: PRESENT: normal external ear exam. ABSENT: bleeding, drainage Respiratory exam: PRESENT: clear to auscultation mayte, symmetrical, unlabored. ABSENT: rales, rhonchi, tachypnea, wheezes Cardiovascular exam: PRESENT: irregular rhythm. ABSENT: bradycardia, diastolic murmur, systolic murmur, tachycardia GI/Abdominal exam: PRESENT: soft, tenderness - Slight tenderness left lower quadrant. ABSENT: distended Rectal exam: PRESENT: deferred Extremities exam: ABSENT: pedal edema Musculoskeletal exam: PRESENT: ambulatory Neurological exam: PRESENT: alert, awake, oriented to person, oriented to place, oriented to time, oriented to situation, CN II-XII grossly intact. ABSENT: altered Psychiatric exam: PRESENT: flat affect. ABSENT: agitated, anxious Focused psych exam: ABSENT: delusional, paranoid, restlessness Results Laboratory Results: 08/23/20 05:37 08/23/20 05:37 08/23/20 08/23/20 05:37 05:37 WBC 0.8 L* D RBC 2.76 L Hgb 8.3 L Hct 23.1 L MCV 84 MCH 29.9 MCHC 35.8 RDW 15.1 H Plt Count 28 L* Seg Neutrophils % Not Reportable Sodium 134.1 L Potassium 4.1 Chloride 105 Carbon Dioxide 20 L Anion Gap 9 BUN 28 H Creatinine 0.72 Est GFR ( Amer) > 60 Glucose 170 H Calcium 8.2 L Phosphorus 2.2 L Magnesium 2.2 Total Bilirubin 1.0 AST 22 Alkaline Phosphatase 63 Total Protein 4.8 L Albumin 2.6 L 08/20/20 22:41 Blood Blood Culture (PCR) - Final Staphylococcus Species 08/20/20 22:41 Blood Blood Culture - Final Staphylococcus Epidermidis 08/20/20 23:41 Blood Blood Culture (PCR) - Final Staphylococcus Species 08/20/20 23:41 Blood Blood Culture - Final Staphylococcus Epidermidis 08/20/20 08/21/20 22:15 01:19 Troponin I 0.143 0.235 Impressions: Chest X-Ray 08/20/20 22:33 IMPRESSION: No definite pneumonia. Abdomen/Pelvis CT 08/20/20 23:48 IMPRESSION: Mid descending colonic diverticulitis. Recommend follow-up colonoscopy to exclude an underlying mass. Chest/Abdomen CTA 08/21/20 02:34 IMPRESSION: 1. Patchy peripheral groundglass opacities in the right lung. Imaging features can be seen with viral pneumonia, though are nonspecific and can occur with a variety of infectious and noninfectious processes. [PneInd] Reference: https://pubs.rsna.org/doi/full/10.1148/ryct.9074513451 2. Cardiomegaly with coronary artery atherosclerosis. 3. No pulmonary embolus. This exam was performed according to our departmental dose-optimization program, which includes automated exposure control, adjustment of the mA and/or kV according to patient size and/or use of iterative reconstruction technique. 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 Is this a current diagnosis for this admission?: Yes (3) Pancytopenia Is this a current diagnosis for this admission?: Yes (4) Hypotension Qualifiers: Hypotension type: unspecified hypotension type Qualified Code(s): I95.9 - Hypotension, unspecified Is this a current diagnosis for this admission?: Yes (5) Bacteremia Is this a current diagnosis for this admission?: Yes (6) Sepsis Qualifiers: Sepsis type: sepsis due to unspecified organism Sepsis acute organ dysfunction status: with acute organ dysfunction Severe sepsis acute organ dysfunction type: unspecified Severe sepsis shock status: with septic shock Qualified Code(s): A41.9 - Sepsis, unspecified organism; R65.21 - Severe sepsis with septic shock Is this a current diagnosis for this admission?: Yes - Plan Summary Summary: 08/23/2020 Patient transferred from the ICU last night. History of chemotherapy for leukemia. Acute diverticulitis-initially on Levaquin and metronidazole. Changed to Zyvox I believe when the blood cultures turn positive. Bacteremia with staph epidermidis-possibly a contaminant. Difficult to know without repeat blood cultures. Certainly Zyvox would cover the possibility. 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 She is getting chemotherapy. The chemotherapy likely induced the pancytopenia. This was exacerbated by an episode of diverticulitis. Sepsis-by definition the patient meets criteria for sepsis. She required pressors, had an elevated bilirubin of 1.9 and exhibited severe thrombocytopenia. Sepsis has resolved with antibiotics and fluids. Pancytopenia-secondary to chemotherapy then exacerbated by diverticulitis. The patient did receive platelets and 2 units of leukocyte reduced red blood cells. Unfortunately her counts are still poor. Today her white blood cell count was 0.8 with a hemoglobin of 8.3 and a platelet count of 28. Oncology continues to follow. Clearly she will not be getting the next scheduled chemotherapy treatment. - Time Time Spent with patient: 15-24 minutes Medications reviewed and adjusted accordingly: Yes Anticipated Discharge Disposition: Home, Self Care Anticipated Discharge Timeframe: Unknown due to pancytopenia
[2020-08-24] MEDS: HYDROCORTISONE SOD SUCCINATE INJ/PF 100 MG/2 ML SDV IV SCH ×3 (05:04→22:33)
[2020-08-24] MEDS: SUCRALFATE 1 GM TABLET PO SCH ×3 (05:04→22:33)
[2020-08-24 06:23] LABS: HEMOGLOBIN 8.2 g/dL (12.0-15.5); MEAN CORPUSCULAR HEMOGLOBIN 29.7 pg (27.0-33.4); MEAN CORPUSCULAR HGB CONC 35.6 g/dL (32.0-36.0); MEAN CORPUSCULAR VOLUME 83 fl (80-97); RED BLOOD COUNT 2.77 10^6/uL (3.72-5.28); RED CELL DISTRIBUTION WIDTH 14.9 % (11.5-14.0)
[2020-08-24] MEDS: DIPHENHYDRAMINE HCL 25 MG/10 ML UDC PO SCH ×3 (06:40→22:39)
[2020-08-24 06:48] LABS: ALBUMIN 2.6 g/dL (3.5-5.0); ALKALINE PHOSPHATASE 59 U/L (38-126); ANION GAP 7 (5-19); ASPARTATE AMINO TRANSFERASE 19 U/L (14-36); BILIRUBIN,DIRECT 0.1 mg/dL (0.0-0.4); BILIRUBIN,TOTAL 0.8 mg/dL (0.2-1.3); BLOOD UREA NITROGEN 27 mg/dL (7-20); CALCIUM 8.2 mg/dL (8.4-10.2); CARBON DIOXIDE 22 mmol/L (22-30); CHLORIDE 104 mmol/L (98-107); GLUCOSE 136 mg/dL (75-110); PHOSPHORUS 3.1 mg/dL (2.5-4.5); POTASSIUM 4.4 mmol/L (3.6-5.0); TOTAL PROTEIN 4.8 g/dL (6.3-8.2)
[2020-08-24 07:24] LABS: ABSOLUTE LYMPHOCYTES# (MANUAL) 0.4 10^3/uL (0.5-4.7); ABSOLUTE MONOCYTES # (MANUAL) 0.3 10^3/uL (0.1-1.4); BASOPHILS % (MANUAL) 0 % (0-2); EOSINOPHILS % (MANUAL) 0 % (0-6); LYMPHOCYTES % (MANUAL) 49 % (13-45); MONOCYTES % (MANUAL) 29 % (3-13); SEGMENTED NEUTROPHILS % (MAN) 22 % (42-78); TOTAL CELLS COUNTED 100
[2020-08-24 07:25] LABS: ANISOCYTOSIS SLIGHT; BURR CELLS SLIGHT; OVALOCYTES SLIGHT; PLATELET COMMENT ADEQUATE; POIKILOCYTOSIS SLIGHT; POLYCHROMASIA SLIGHT; SPHEROCYTES SLIGHT
[2020-08-24] MEDS: BUPROPION 150 MG PO SCH (08:16)
--- NOTE | 2020-08-24 10:14 | PDOC PROGRESS REPORT ---
Subjective Progress Note for:: 08/24/20 Reason For Visit: DIVERTICULITIS Physical Exam Vital Signs: Temp Pulse Resp BP Pulse Ox 98.0 F 79 20 112/60 100 08/24/20 09:07 08/24/20 07:58 08/24/20 07:58 08/24/20 07:58 08/24/20 07:58 Intake & Output 08/23/20 08/24/20 08/25/20 06:59 06:59 05:59 Intake Total 1513 1100 Output Total 1200 1050 Balance 313 50 Weight 73.4 kg 73.1 kg Results Laboratory Results: 08/24/20 05:56 08/24/20 05:56 08/24/20 08/24/20 05:56 05:56 WBC 0.9 L* RBC 2.77 L Hgb 8.2 L Hct 23.0 L MCV 83 MCH 29.7 MCHC 35.6 RDW 14.9 H Plt Count 23 L* Seg Neutrophils % Not Reportable Sodium 132.8 L Potassium 4.4 Chloride 104 Carbon Dioxide 22 Anion Gap 7 BUN 27 H Creatinine 0.70 Est GFR ( Amer) > 60 Glucose 136 H Calcium 8.2 L Phosphorus 3.1 Magnesium 2.2 Total Bilirubin 0.8 AST 19 Alkaline Phosphatase 59 Total Protein 4.8 L Albumin 2.6 L 08/20/20 22:41 Blood Blood Culture (PCR) - Final Staphylococcus Species 08/20/20 22:41 Blood Blood Culture - Final Staphylococcus Epidermidis 08/20/20 23:41 Blood Blood Culture (PCR) - Final Staphylococcus Species 08/20/20 23:41 Blood Blood Culture - Final Staphylococcus Epidermidis 08/20/20 08/21/20 22:15 01:19 Troponin I 0.143 0.235 Impressions: Chest X-Ray 08/20/20 22:33 IMPRESSION: No definite pneumonia. Abdomen/Pelvis CT 08/20/20 23:48 IMPRESSION: Mid descending colonic diverticulitis. Recommend follow-up colonoscopy to exclude an underlying mass. Chest/Abdomen CTA 08/21/20 02:34 IMPRESSION: 1. Patchy peripheral groundglass opacities in the right lung. Imaging features can be seen with viral pneumonia, though are nonspecific and can occur with a variety of infectious and noninfectious processes. [PneInd] Reference: https://pubs.rsna.org/doi/full/10.1148/ryct.9228882378 2. Cardiomegaly with coronary artery atherosclerosis. 3. No pulmonary embolus. This exam was performed according to our departmental dose-optimization program, which includes automated exposure control, adjustment of the mA and/or kV according to patient size and/or use of iterative reconstruction technique.
[2020-08-24] MEDS: PANTOPRAZOLE SODIUM 40 MG VIAL IV SCH (10:44)
[2020-08-24] MEDS: DILTIAZEM HCL 120 MG CAP.SR.24H PO SCH (10:44)
--- NOTE | 2020-08-24 12:26 | PDOC PROGRESS REPORT ---
Subjective Progress Note for:: 08/24/20 Subjective:: No acute events overnight Reason For Visit: DIVERTICULITIS Physical Exam Vital Signs: Temp Pulse Resp BP Pulse Ox 98.0 F 79 20 112/60 100 08/24/20 09:07 08/24/20 07:58 08/24/20 07:58 08/24/20 07:58 08/24/20 07:58 Intake & Output 08/23/20 08/24/20 08/25/20 06:59 06:59 05:59 Intake Total 1513 1100 Output Total 1200 1050 Balance 313 50 Weight 73.4 kg 73.1 kg General appearance: PRESENT: no acute distress, well-developed, well-nourished Head exam: PRESENT: atraumatic, normocephalic Eye exam: PRESENT: conjunctiva pink, EOMI, PERRLA. ABSENT: scleral icterus Ear exam: PRESENT: normal external ear exam Mouth exam: PRESENT: moist, tongue midline Neck exam: ABSENT: carotid bruit, JVD, lymphadenopathy, thyromegaly Respiratory exam: PRESENT: clear to auscultation mayte. ABSENT: rales, rhonchi, wheezes Cardiovascular exam: PRESENT: RRR. ABSENT: diastolic murmur, rubs, systolic murmur Pulses: PRESENT: normal dorsalis pedis pul Vascular exam: PRESENT: normal capillary refill GI/Abdominal exam: PRESENT: normal bowel sounds, soft. ABSENT: distended, guarding, mass, organolmegaly, rebound, tenderness Rectal exam: PRESENT: deferred Extremities exam: PRESENT: full ROM. ABSENT: calf tenderness, clubbing, pedal edema Neurological exam: PRESENT: alert, awake, oriented to person, oriented to place, oriented to time, oriented to situation, CN II-XII grossly intact. ABSENT: motor sensory deficit Psychiatric exam: PRESENT: appropriate affect, normal mood. ABSENT: homicidal ideation, suicidal ideation Skin exam: PRESENT: dry, intact, warm. ABSENT: cyanosis, rash Results Laboratory Results: 08/24/20 05:56 08/24/20 05:56 08/24/20 08/24/20 05:56 05:56 WBC 0.9 L* RBC 2.77 L Hgb 8.2 L Hct 23.0 L MCV 83 MCH 29.7 MCHC 35.6 RDW 14.9 H Plt Count 23 L* Seg Neutrophils % Not Reportable Sodium 132.8 L Potassium 4.4 Chloride 104 Carbon Dioxide 22 Anion Gap 7 BUN 27 H Creatinine 0.70 Est GFR ( Amer) > 60 Glucose 136 H Calcium 8.2 L Phosphorus 3.1 Magnesium 2.2 Total Bilirubin 0.8 AST 19 Alkaline Phosphatase 59 Total Protein 4.8 L Albumin 2.6 L 08/20/20 22:41 Blood Blood Culture (PCR) - Final Staphylococcus Species 08/20/20 22:41 Blood Blood Culture - Final Staphylococcus Epidermidis 08/20/20 23:41 Blood Blood Culture (PCR) - Final Staphylococcus Species 08/20/20 23:41 Blood Blood Culture - Final Staphylococcus Epidermidis 08/20/20 08/21/20 22:15 01:19 Troponin I 0.143 0.235 Impressions: Chest X-Ray 08/20/20 22:33 IMPRESSION: No definite pneumonia. Abdomen/Pelvis CT 08/20/20 23:48 IMPRESSION: Mid descending colonic diverticulitis. Recommend follow-up colonoscopy to exclude an underlying mass. Chest/Abdomen CTA 08/21/20 02:34 IMPRESSION: 1. Patchy peripheral groundglass opacities in the right lung. Imaging features can be seen with viral pneumonia, though are nonspecific and can occur with a variety of infectious and noninfectious processes. [PneInd] Reference: https://pubs.rsna.org/doi/full/10.1148/ryct.8726957677 2. Cardiomegaly with coronary artery atherosclerosis. 3. No pulmonary embolus. This exam was performed according to our departmental dose-optimization program, which includes automated exposure control, adjustment of the mA and/or kV according to patient size and/or use of iterative reconstruction technique. Assessment & Plan - Diagnosis (1) Pancytopenia Is this a current diagnosis for this admission?: Yes Plan: Related to post chemotherapy, continue to monitor, no need for transfusion as of yet. Generally in the [facility] setting we do not use growth factor support such as Neupogen. 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 Continue to monitor. Being treated by Dr. Sr. - Time Time Spent with patient: 35 or more minutes
[2020-08-24] MEDS: AMPICILLIN SODIUM/SULBACTAM NA 1.5 GM in NORMAL SALINE 50 ML IV SCH ×3 (13:21→23:54)
--- NOTE | 2020-08-24 17:01 | PDOC PROGRESS REPORT ---
Subjective Progress Note for:: 08/24/20 Subjective:: The patient is actually feeling better today. She reports that she has been able to eat a little bit more. She is not having the left lower quadrant tenderness. Reason For Visit: DIVERTICULITIS Physical Exam Vital Signs: Temp Pulse Resp BP Pulse Ox 97.8 F 100 20 109/85 91 L 08/24/20 15:02 08/24/20 15:02 08/24/20 15:02 08/24/20 15:02 08/24/20 15:02 Intake & Output 08/23/20 08/24/20 08/25/20 06:59 06:59 05:59 Intake Total 1513 1100 250 Output Total 1200 1050 200 Balance 313 50 50 Weight 73.4 kg 73.1 kg General appearance: PRESENT: no acute distress, cooperative, well-developed Head exam: PRESENT: atraumatic, normocephalic Ear exam: PRESENT: normal external ear exam. ABSENT: bleeding, drainage Respiratory exam: PRESENT: clear to auscultation mayte, symmetrical, unlabored, other - On nasal cannula. ABSENT: accessory muscle use, rales, rhonchi, tachypnea, wheezes Cardiovascular exam: PRESENT: irregular rhythm. ABSENT: bradycardia, diastolic murmur, systolic murmur, tachycardia GI/Abdominal exam: PRESENT: normal bowel sounds, soft. ABSENT: tenderness Rectal exam: PRESENT: deferred Gentrourinary exam: ABSENT: indwelling catheter Extremities exam: ABSENT: pedal edema Musculoskeletal exam: PRESENT: ambulatory, normal inspection Neurological exam: PRESENT: alert, awake, oriented to person, oriented to place, oriented to time, oriented to situation, CN II-XII grossly intact. ABSENT: altered Psychiatric exam: PRESENT: appropriate affect. ABSENT: agitated, anxious Focused psych exam: ABSENT: delusional, paranoid, restlessness Skin exam: PRESENT: dry, pallor, warm. ABSENT: rash Results Laboratory Results: 08/24/20 05:56 08/24/20 05:56 08/24/20 08/24/20 05:56 05:56 WBC 0.9 L* RBC 2.77 L Hgb 8.2 L Hct 23.0 L MCV 83 MCH 29.7 MCHC 35.6 RDW 14.9 H Plt Count 23 L* Seg Neutrophils % Not Reportable Sodium 132.8 L Potassium 4.4 Chloride 104 Carbon Dioxide 22 Anion Gap 7 BUN 27 H Creatinine 0.70 Est GFR ( Amer) > 60 Glucose 136 H Calcium 8.2 L Phosphorus 3.1 Magnesium 2.2 Total Bilirubin 0.8 AST 19 Alkaline Phosphatase 59 Total Protein 4.8 L Albumin 2.6 L 08/20/20 08/21/20 22:15 01:19 Troponin I 0.143 0.235 Impressions: Chest X-Ray 08/20/20 22:33 IMPRESSION: No definite pneumonia. Abdomen/Pelvis CT 08/20/20 23:48 IMPRESSION: Mid descending colonic diverticulitis. Recommend follow-up colonoscopy to exclude an underlying mass. Chest/Abdomen CTA 08/21/20 02:34 IMPRESSION: 1. Patchy peripheral groundglass opacities in the right lung. Imaging features can be seen with viral pneumonia, though are nonspecific and can occur with a variety of infectious and noninfectious processes. [PneInd] Reference: https://pubs.rsna.org/doi/full/10.1148/ryct.6105861396 2. Cardiomegaly with coronary artery atherosclerosis. 3. No pulmonary embolus. This exam was performed according to our departmental dose-optimization program, which includes automated exposure control, adjustment of the mA and/or kV according to patient size and/or use of iterative reconstruction technique. 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 Is this a current diagnosis for this admission?: Yes (3) Pancytopenia Is this a current diagnosis for this admission?: Yes (4) Hypotension Qualifiers: Hypotension type: unspecified hypotension type Qualified Code(s): I95.9 - Hypotension, unspecified Is this a current diagnosis for this admission?: Yes (5) Bacteremia Is this a current diagnosis for this admission?: Yes (6) Sepsis Qualifiers: Sepsis type: sepsis due to unspecified organism Sepsis acute organ dysfunction status: with acute organ dysfunction Severe sepsis acute organ dysfunction type: unspecified Severe sepsis shock status: with septic shock Qualified Code(s): A41.9 - Sepsis, unspecified organism; R65.21 - Severe sepsis with septic shock Is this a current diagnosis for this admission?: Yes (7) Longstanding persistent atrial fibrillation Is this a current diagnosis for this admission?: Yes - Plan Summary Summary: 08/23/2020 Patient transferred from the ICU last night. History of chemotherapy for leukemia. Acute diverticulitis-initially on Levaquin and metronidazole. Changed to Zyvox I believe when the blood cultures turn positive. Bacteremia with staph epidermidis-possibly a contaminant. Difficult to know without repeat blood cultures. Certainly Zyvox would cover the possibility. 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 She is getting chemotherapy. The chemotherapy likely induced the pancytopenia. This was exacerbated by an episode of diverticulitis. Sepsis-by definition the patient meets criteria for sepsis. She required pressors, had an elevated bilirubin of 1.9 and exhibited severe thrombocytopenia. Sepsis has resolved with antibiotics and fluids. Pancytopenia-secondary to chemotherapy then exacerbated by diverticulitis. The patient did receive platelets and 2 units of leukocyte reduced red blood cells. Unfortunately her counts are still poor. Today her white blood cell count was 0.8 with a hemoglobin of 8.3 and a platelet count of 28. Oncology continues to follow. Clearly she will not be getting the next scheduled chemotherapy treatment. 08/24/2020 Diverticulitis-the patient was on Zyvox likely for the positive blood cultures. There is no gram-negative coverage. Based on the sensitivities of the blood cultures I am changing to Unasyn as this will cover much of the diverticulitis as well as the blood cultures. Pancytopenia-the white blood cell count is 0.9 up from 0.8 and the platelets are 23 down from 28. There is no bleeding. We will repeat a CBC tomorrow. Will defer to oncology with regard to transfusion cutoffs. Atrial fibrillation-good rate control with diltiazem. No anticoagulation due to thrombocytopenia - Time Time Spent with patient: 15-24 minutes Medications reviewed and adjusted accordingly: Yes Anticipated Discharge Disposition: Home, Self Care Anticipated Discharge Timeframe: within 72 hours
[2020-08-25] MEDS: HYDROCORTISONE SOD SUCCINATE INJ/PF 100 MG/2 ML SDV IV SCH ×3 (06:04→21:35)
[2020-08-25] MEDS: SUCRALFATE 1 GM TABLET PO SCH ×3 (06:04→21:36)
[2020-08-25] MEDS: AMPICILLIN SODIUM/SULBACTAM NA 1.5 GM in NORMAL SALINE 50 ML IV SCH ×3 (06:04→18:02)
[2020-08-25] MEDS: DIPHENHYDRAMINE HCL 25 MG/10 ML UDC PO SCH ×3 (06:05→21:36)
[2020-08-25 06:30] LABS: HEMATOCRIT 23.5 % (36.0-47.0); HEMOGLOBIN 8.4 g/dL (12.0-15.5); MEAN CORPUSCULAR HGB CONC 35.9 g/dL (32.0-36.0); MEAN CORPUSCULAR VOLUME 84 fl (80-97); RED BLOOD COUNT 2.81 10^6/uL (3.72-5.28); RED CELL DISTRIBUTION WIDTH 15.4 % (11.5-14.0)
[2020-08-25 07:04] LABS: ANION GAP 10 (5-19); BLOOD UREA NITROGEN 28 mg/dL (7-20); CALCIUM 8.3 mg/dL (8.4-10.2); CARBON DIOXIDE 21 mmol/L (22-30); CHLORIDE 105 mmol/L (98-107); GLUCOSE 113 mg/dL (75-110); POTASSIUM 4.4 mmol/L (3.6-5.0)
[2020-08-25 07:26] LABS: WHITE BLOOD COUNT 0.9 10^3/uL (4.0-10.5)
[2020-08-25 07:27] LABS: PLATELET COUNT 23 10^3/uL (150-450)
[2020-08-25] MEDS: BUPROPION 150 MG PO SCH (07:44)
[2020-08-25 08:00] LABS: PLATELET COUNT 18 10^3/uL (150-450); WHITE BLOOD COUNT 1.5 10^3/uL (4.0-10.5)
[2020-08-25 08:11] LABS: ABSOLUTE LYMPHOCYTES# (MANUAL) 1.2 10^3/uL (0.5-4.7); BAND NEUTROPHILS % (MANUAL) 1 % (3-5); BASOPHILS % (MANUAL) 0 % (0-2); EOSINOPHILS % (MANUAL) 0 % (0-6); MONOCYTES % (MANUAL) 2 % (3-13); SEGMENTED NEUTROPHILS % (MAN) 12 % (42-78); TOTAL CELLS COUNTED 100
[2020-08-25 08:21] LABS: IMMATURE MONONUCLEAR% (MANUAL) 4 % (0); LYMPHOCYTES % (MANUAL) 72 % (13-45)
[2020-08-25 08:22] LABS: ANISOCYTOSIS SLIGHT; OVALOCYTES 1+; PLATELET COMMENT DECREASED; POIKILOCYTOSIS 1+
[2020-08-25] MEDS: PANTOPRAZOLE SODIUM 40 MG VIAL IV SCH (09:14)
[2020-08-25] MEDS: DILTIAZEM HCL 120 MG CAP.SR.24H PO SCH (09:14)
--- NOTE | 2020-08-25 11:47 | PDOC PROGRESS REPORT ---
Subjective Progress Note for:: 08/25/20 Subjective:: Was able to get to the bathroom with assistance this morning. Her platelet count is slightly lower but no evidence of bleeding. She is also concerned about her weakness and wonders about skilled rehab versus the risk of infection. Reason For Visit: DIVERTICULITIS Physical Exam Vital Signs: Temp Pulse Resp BP Pulse Ox 97.9 F 82 10 L 110/53 L 94 08/25/20 09:09 08/25/20 07:00 08/25/20 08:00 08/25/20 08:00 08/24/20 23:15 Intake & Output 08/24/20 08/25/20 08/26/20 07:59 06:59 06:59 Intake Total 50 Output Total Balance 50 Weight General appearance: PRESENT: no acute distress, cooperative, well-developed, other - Was up in the chair. Had use the bathroom earlier this morning. Head exam: PRESENT: atraumatic, normocephalic Respiratory exam: PRESENT: clear to auscultation mayte, symmetrical, unlabored. ABSENT: prolonged expiratory phas, rales, rhonchi, tachypnea, wheezes Cardiovascular exam: PRESENT: RRR, +S1, +S2. ABSENT: bradycardia, diastolic murmur, irregular rhythm, systolic murmur, tachycardia GI/Abdominal exam: PRESENT: normal bowel sounds, soft. ABSENT: distended, tenderness Rectal exam: PRESENT: deferred Extremities exam: ABSENT: pedal edema Musculoskeletal exam: PRESENT: ambulatory. ABSENT: deformity, dislocation Neurological exam: PRESENT: alert, awake, oriented to person, oriented to place, oriented to time, oriented to situation, CN II-XII grossly intact. ABSENT: a ltered Psychiatric exam: PRESENT: appropriate affect. ABSENT: agitated, anxious Focused psych exam: ABSENT: delusional, paranoid, restlessness Results Laboratory Results: 08/25/20 06:10 08/25/20 06:10 08/24/20 08/25/20 08/25/20 05:56 06:10 06:10 WBC 0.9 L* 1.5 L* RBC 2.81 L Hgb 8.4 L Hct 23.5 L MCV 84 MCH 30.0 MCHC 35.9 RDW 15.4 H Plt Count 23 L* 18 L* Seg Neutrophils % Not Reportable Sodium 135.5 L Potassium 4.4 Chloride 105 Carbon Dioxide 21 L Anion Gap 10 BUN 28 H Creatinine 0.71 Est GFR ( Amer) > 60 Glucose 113 H Calcium 8.3 L Magnesium 2.3 08/20/20 08/21/20 22:15 01:19 Troponin I 0.143 0.235 Impressions: Chest X-Ray 08/20/20 22:33 IMPRESSION: No definite pneumonia. Abdomen/Pelvis CT 08/20/20 23:48 IMPRESSION: Mid descending colonic diverticulitis. Recommend follow-up colonoscopy to exclude an underlying mass. Chest/Abdomen CTA 08/21/20 02:34 IMPRESSION: 1. Patchy peripheral groundglass opacities in the right lung. Imaging features can be seen with viral pneumonia, though are nonspecific and can occur with a variety of infectious and noninfectious processes. [PneInd] Reference: https://pubs.rsna.org/doi/full/10.1148/ryct.1698126270 2. Cardiomegaly with coronary artery atherosclerosis. 3. No pulmonary embolus. This exam was performed according to our departmental dose-optimization program, which includes automated exposure control, adjustment of the mA and/or kV according to patient size and/or use of iterative reconstruction technique. 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 Is this a current diagnosis for this admission?: Yes (3) Pancytopenia Is this a current diagnosis for this admission?: Yes (4) Hypotension Qualifiers: Hypotension type: unspecified hypotension type Qualified Code(s): I95.9 - Hypotension, unspecified Is this a current diagnosis for this admission?: Yes (5) Bacteremia Is this a current diagnosis for this admission?: Yes (6) Sepsis Qualifiers: Sepsis type: sepsis due to unspecified organism Sepsis acute organ dysfunction status: with acute organ dysfunction Severe sepsis acute organ dysfunction type: unspecified Severe sepsis shock status: with septic shock Qualified Code(s): A41.9 - Sepsis, unspecified organism; R65.21 - Severe sepsis with septic shock Is this a current diagnosis for this admission?: Yes (7) Longstanding persistent atrial fibrillation Is this a current diagnosis for this admission?: Yes - Plan Summary Summary: 08/23/2020 Patient transferred from the ICU last night. History of chemotherapy for leukemia. Acute diverticulitis-initially on Levaquin and metronidazole. Changed to Zyvox I believe when the blood cultures turn positive. Bacteremia with staph epidermidis-possibly a contaminant. Difficult to know without repeat blood cultures. Certainly Zyvox would cover the possibility. 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 She is getting chemotherapy. The chemotherapy likely induced the pancytopenia. This was exacerbated by an episode of diverticulitis. Sepsis-by definition the patient meets criteria for sepsis. She required pressors, had an elevated bilirubin of 1.9 and exhibited severe thrombocytopenia. Sepsis has resolved with antibiotics and fluids. Pancytopenia-secondary to chemotherapy then exacerbated by diverticulitis. The patient did receive platelets and 2 units of leukocyte reduced red blood cells. Unfortunately her counts are still poor. Today her white blood cell count was 0.8 with a hemoglobin of 8.3 and a platelet count of 28. Oncology continues to follow. Clearly she will not be getting the next scheduled chemotherapy treatment. 08/24/2020 Diverticulitis-the patient was on Zyvox likely for the positive blood cultures. There is no gram-negative coverage. Based on the sensitivities of the blood c ultures I am changing to Unasyn as this will cover much of the diverticulitis as well as the blood cultures. Pancytopenia-the white blood cell count is 0.9 up from 0.8 and the platelets are 23 down from 28. There is no bleeding. We will repeat a CBC tomorrow. Will defer to oncology with regard to transfusion cutoffs. Atrial fibrillation-good rate control with diltiazem. No anticoagulation due to thrombocytopenia 08/25/2020 Diverticulitis-doing well on Unasyn. Pancytopenia-white blood cell count up slightly but platelet count down again. No evidence of bleeding. Await Dr. Ocampo's visit regarding additional transfusions or just close monitoring. Atrial fibrillation-good rate control. Continue current regimen The patient briefly discussed home versus skilled facility. With regard to her pancytopenia she would be at serious risk of infection in a facility. Home with home health would be a safer option. She does live alone and that could be an issue. Children are close enough to visit regularly. - Time Time Spent with patient: 15-24 minutes Medications reviewed and adjusted accordingly: Yes Anticipated Discharge Disposition: Home with Home Health Anticipated Discharge Timeframe: within 72 hours
[2020-08-26] MEDS: AMPICILLIN SODIUM/SULBACTAM NA 1.5 GM in NORMAL SALINE 50 ML IV SCH ×4 (00:33→17:33)
[2020-08-26 04:42] LABS: HEMATOCRIT 24.2 % (36.0-47.0); HEMOGLOBIN 8.5 g/dL (12.0-15.5); MEAN CORPUSCULAR HEMOGLOBIN 29.6 pg (27.0-33.4); MEAN CORPUSCULAR HGB CONC 35.1 g/dL (32.0-36.0); MEAN CORPUSCULAR VOLUME 84 fl (80-97); RED BLOOD COUNT 2.87 10^6/uL (3.72-5.28); RED CELL DISTRIBUTION WIDTH 15.3 % (11.5-14.0)
[2020-08-26 05:04] LABS: ABSOLUTE LYMPHOCYTES# (MANUAL) 0.6 10^3/uL (0.5-4.7); ABSOLUTE MONOCYTES # (MANUAL) 0.5 10^3/uL (0.1-1.4); BAND NEUTROPHILS % (MANUAL) 2 % (3-5); BASOPHILS % (MANUAL) 0 % (0-2); EOSINOPHILS % (MANUAL) 0 % (0-6); LYMPHOCYTES % (MANUAL) 38 % (13-45); MONOCYTES % (MANUAL) 30 % (3-13); SEGMENTED NEUTROPHILS % (MAN) 30 % (42-78); TOTAL CELLS COUNTED 50
[2020-08-26 05:06] LABS: ANISOCYTOSIS SLIGHT; POIKILOCYTOSIS 1+
[2020-08-26 05:07] LABS: OVALOCYTES SLIGHT; PLATELET COMMENT DECREASED; POLYCHROMASIA SLIGHT
[2020-08-26 05:18] LABS: PLATELET COUNT 15 10^3/uL (150-450)
[2020-08-26 05:22] LABS: WHITE BLOOD COUNT 1.7 10^3/uL (4.0-10.5)
[2020-08-26] MEDS: HYDROCORTISONE SOD SUCCINATE INJ/PF 100 MG/2 ML SDV IV SCH ×3 (05:30→21:23)
[2020-08-26] MEDS: DIPHENHYDRAMINE HCL 25 MG/10 ML UDC PO SCH ×3 (05:30→21:24)
[2020-08-26] MEDS: SUCRALFATE 1 GM TABLET PO SCH ×3 (05:30→21:23)
--- NOTE | 2020-08-26 09:48 | PDOC PROGRESS REPORT ---
Subjective Progress Note for:: 08/26/20 Subjective:: Patient is sleepy today and only opens eye briefly. She does not speak to me. Reason For Visit: DIVERTICULITIS Physical Exam Vital Signs: Temp Pulse Resp BP Pulse Ox 98.1 F 104 H 16 112/73 100 08/26/20 08:07 08/26/20 08:07 08/26/20 08:07 08/26/20 08:07 08/26/20 08:07 Intake & Output 08/25/20 08/26/20 08/27/20 06:59 06:59 06:59 Intake Total 1260 Output Total 450 Balance 810 Weight 71.6 kg General appearance: PRESENT: no acute distress Head exam: PRESENT: normocephalic Respiratory exam: PRESENT: clear to auscultation mayte, unlabored Cardiovascular exam: PRESENT: RRR Extremities exam: ABSENT: pedal edema Neurological exam: PRESENT: alert, awake Psychiatric exam: PRESENT: appropriate affect Skin exam: PRESENT: normal color Results Laboratory Results: 08/26/20 04:18 08/25/20 06:10 08/26/20 04:18 WBC 1.7 L RBC 2.87 L Hgb 8.5 L Hct 24.2 L MCV 84 MCH 29.6 MCHC 35.1 RDW 15.3 H Plt Count 15 L* Seg Neutrophils % Not Reportable 08/20/20 08/21/20 22:15 01:19 Troponin I 0.143 0.235 Impressions: Chest X-Ray 08/20/20 22:33 IMPRESSION: No definite pneumonia. Abdomen/Pelvis CT 08/20/20 23:48 IMPRESSION: Mid descending colonic diverticulitis. Recommend follow-up colonoscopy to exclude an underlying mass. Chest/Abdomen CTA 08/21/20 02:34 IMPRESSION: 1. Patchy peripheral groundglass opacities in the right lung. Imaging features can be seen with viral pneumonia, though are nonspecific and can occur with a variety of infectious and noninfectious processes. [PneInd] Reference: https://pubs.rsna.org/doi/full/10.1148/ryct.4355248593 2. Cardiomegaly with coronary artery atherosclerosis. 3. No pulmonary embolus. This exam was performed according to our departmental dose-optimization program, which includes automated exposure control, adjustment of the mA and/or kV according to patient size and/or use of iterative reconstruction technique. 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 (4) Pancytopenia Is this a current diagnosis for this admission?: Yes Plan: Still difficult to say for sure if pancytopenia is due to the underlying leukemia or to the chemotherapy. Her counts appear to be slowly recovering, but she is not currently bleeding and no fevers. I cannot say for sure that her neutropenia will ever resolve. - Time Time Spent with patient: Less than 15 minutes - Plan Summary Plan Summary: Will continue to follow. Please call with any concerns.
[2020-08-26] MEDS: BUPROPION 150 MG PO SCH (11:04)
[2020-08-26] MEDS: DILTIAZEM HCL 120 MG CAP.SR.24H PO SCH (11:04)
[2020-08-26] MEDS: PANTOPRAZOLE SODIUM 40 MG VIAL IV SCH (11:04)
--- NOTE | 2020-08-26 13:25 | PDOC PROGRESS REPORT ---
Subjective Progress Note for:: 08/26/20 Subjective:: Patient is resting in a chair eating lunch. Breathing is comfortable. No complaints of pain. Reason For Visit: DIVERTICULITIS Physical Exam Vital Signs: Temp Pulse Resp BP Pulse Ox 97.7 F 88 18 101/50 L 82 L 08/26/20 11:01 08/26/20 11:01 08/26/20 11:01 08/26/20 11:01 08/26/20 11:01 Intake & Output 08/25/20 08/26/20 08/27/20 06:59 06:59 06:59 Intake Total 1260 Output Total 450 Balance 810 Weight 71.6 kg General appearance: PRESENT: no acute distress, cooperative, well-developed Head exam: PRESENT: atraumatic, normocephalic Mouth exam: PRESENT: moist, tongue midline Respiratory exam: PRESENT: clear to auscultation mayte, symmetrical, unlabored. ABSENT: rales, rhonchi, tachypnea, wheezes Cardiovascular exam: PRESENT: irregular rhythm, +S1, +S2, systolic murmur - 2/6 GI/Abdominal exam: PRESENT: normal bowel sounds, soft. ABSENT: tenderness Rectal exam: PRESENT: deferred Gentrourinary exam: ABSENT: indwelling catheter Extremities exam: ABSENT: pedal edema Musculoskeletal exam: PRESENT: ambulatory. ABSENT: deformity, dislocation Neurological exam: PRESENT: alert, awake, oriented to person, oriented to place, oriented to time, oriented to situation, CN II-XII grossly intact Psychiatric exam: ABSENT: agitated, anxious Focused psych exam: ABSENT: delusional, paranoid, restlessness Results Laboratory Results: 08/26/20 04:18 08/25/20 06:10 08/26/20 04:18 WBC 1.7 L RBC 2.87 L Hgb 8.5 L Hct 24.2 L MCV 84 MCH 29.6 MCHC 35.1 RDW 15.3 H Plt Count 15 L* Seg Neutrophils % Not Reportable 08/20/20 08/21/20 22:15 01:19 Troponin I 0.143 0.235 Impressions: Chest X-Ray 08/20/20 22:33 IMPRESSION: No definite pneumonia. Abdomen/Pelvis CT 08/20/20 23:48 IMPRESSION: Mid descending colonic diverticulitis. Recommend follow-up colonoscopy to exclude an underlying mass. Chest/Abdomen CTA 08/21/20 02:34 IMPRESSION: 1. Patchy peripheral groundglass opacities in the right lung. Imaging features can be seen with viral pneumonia, though are nonspecific and can occur with a variety of infectious and noninfectious processes. [PneInd] Reference: https://pubs.rsna.org/doi/full/10.1148/ryct.3183593492 2. Cardiomegaly with coronary artery atherosclerosis. 3. No pulmonary embolus. This exam was performed according to our departmental dose-optimization program, which includes automated exposure control, adjustment of the mA and/or kV according to patient size and/or use of iterative reconstruction technique. 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 Is this a current diagnosis for this admission?: Yes (3) Pancytopenia Is this a current diagnosis for this admission?: Yes (4) Hypotension Qualifiers: Hypotension type: unspecified hypotension type Qualified Code(s): I95.9 - Hypotension, unspecified Is this a current diagnosis for this admission?: Yes (5) Bacteremia Is this a current diagnosis for this admission?: Yes (6) Sepsis Qualifiers: Sepsis type: sepsis due to unspecified organism Sepsis acute organ dysfunction status: with acute organ dysfunction Severe sepsis acute organ dysfunction type: unspecified Severe sepsis shock status: with septic shock Qualified Code(s): A41.9 - Sepsis, unspecified organism; R65.21 - Severe sepsis with septic shock Is this a current diagnosis for this admission?: Yes (7) Longstanding persistent atrial fibrillation Is this a current diagnosis for this admission?: Yes - Plan Summary Summary: 08/23/2020 Patient transferred from the ICU last night. History of chemotherapy for [facility]. Acute diverticulitis-initially on Levaquin and metronidazole. Changed to Zyvox I believe when the blood cultures turn positive. Bacteremia with staph epidermidis-possibly a contaminant. Difficult to know without repeat blood cultures. Certainly Zyvox would cover the possibility. 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 She is getting chemotherapy. The chemotherapy likely induced the pancytopenia. This was exacerbated by an episode of diverticulitis. Sepsis-by definition the patient meets criteria for sepsis. She required pressors, had an elevated bilirubin of 1.9 and exhibited severe thrombocytopenia. Sepsis has resolved with antibiotics and fluids. Pancytopenia-secondary to chemotherapy then exacerbated by diverticulitis. The patient did receive platelets and 2 units of leukocyte reduced red blood cells. Unfortunately her counts are still poor. Today her white blood cell count was 0.8 with a hemoglobin of 8.3 and a platelet count of 28. Oncology continues to follow. Clearly she will not be getting the next scheduled chemotherapy treatment. 08/24/2020 Diverticulitis-the patient was on Zyvox likely for the positive blood cultures. There is no gram-negative coverage. Based on the sensitivities of the blood cultures I am changing to Unasyn as this will cover much of the diverticulitis as well as the blood cultures. Pancytopenia-the white blood cell count is 0.9 up from 0.8 and the platelets are 23 down from 28. There is no bleeding. We will repeat a CBC tomorrow. Will defer to oncology with regard to transfusion cutoffs. Atrial fibrillation-good rate control with diltiazem. No anticoagulation due to thrombocytopenia 08/25/2020 Diverticulitis-doing well on Unasyn. Pancytopenia-white blood cell count up slightly but platelet count down again. No evidence of bleeding. Await Dr. Ocampo's visit regarding additional transfusions or just close monitoring. Atrial fibrillation-good rate control. Continue current regimen The patient briefly discussed home versus skilled facility. With regard to her pancytopenia she would be at serious risk of infection in a facility. Home with home health would be a safer option. She does live alone and that could be an issue. Children are close enough to visit regularly. 08/26/2020 Diverticulitis-continue Unasyn. End of treatment 08/31/2020 Pancytopenia-hemoglobin stable, white blood cell count improving and platelets decreasing. Recheck CBC in the morning. Will transfuse platelets if platelet count less than 10,000 or signs of bleeding. Atrial fibrillation-good control at rest. Increased rate with exertion. Limited by blood pressure with regard to increasing diltiazem dose. Deconditioning-physical therapy has seen the patient. The patient did discuss possible short-term rehab. We will need to review this with her immuno compromise state. - Time Time Spent with patient: 15-24 minutes Medications reviewed and adjusted accordingly: Yes Anticipated Discharge Disposition: Home health versus residential Anticipated Discharge Timeframe: within 48 hours
[2020-08-27] MEDS: AMPICILLIN SODIUM/SULBACTAM NA 1.5 GM in NORMAL SALINE 50 ML IV SCH ×4 (00:29→17:55)
[2020-08-27 06:06] LABS: HEMATOCRIT 21.2 % (36.0-47.0); MEAN CORPUSCULAR HEMOGLOBIN 29.9 pg (27.0-33.4); MEAN CORPUSCULAR HGB CONC 35.4 g/dL (32.0-36.0); MEAN CORPUSCULAR VOLUME 84 fl (80-97); RED BLOOD COUNT 2.51 10^6/uL (3.72-5.28); RED CELL DISTRIBUTION WIDTH 15.2 % (11.5-14.0)
[2020-08-27] MEDS: PANTOPRAZOLE SODIUM 40 MG TABLET.DR PO SCH (06:08)
[2020-08-27] MEDS: HYDROCORTISONE SOD SUCCINATE INJ/PF 100 MG/2 ML SDV IV SCH (06:08)
[2020-08-27] MEDS: SUCRALFATE 1 GM TABLET PO SCH ×3 (06:08→22:21)
[2020-08-27] MEDS: DIPHENHYDRAMINE HCL 25 MG/10 ML UDC PO SCH ×3 (06:30→22:20)
[2020-08-27 06:50] LABS: HEMOGLOBIN 7.5 g/dL (12.0-15.5); PLATELET COUNT 8 10^3/uL (150-450)
[2020-08-27 07:04] LABS: ABSOLUTE LYMPHOCYTES# (MANUAL) 1.1 10^3/uL (0.5-4.7); ABSOLUTE MONOCYTES # (MANUAL) 0.1 10^3/uL (0.1-1.4); BASOPHILS % (MANUAL) 0 % (0-2); EOSINOPHILS % (MANUAL) 0 % (0-6); LYMPHOCYTES % (MANUAL) 82 % (13-45); MONOCYTES % (MANUAL) 4 % (3-13); SEGMENTED NEUTROPHILS % (MAN) 12 % (42-78); TOTAL CELLS COUNTED 50
[2020-08-27 07:07] LABS: ANISOCYTOSIS 1+; OVALOCYTES 1+; POIKILOCYTOSIS 1+; TOXIC GRANULATION 1+; TOXIC VACUOLATION PRESENT
[2020-08-27 07:08] LABS: PLATELET COMMENT DECREASED; TEAR DROP CELLS SLIGHT
[2020-08-27 07:10] LABS: WHITE BLOOD COUNT 1.3 10^3/uL (4.0-10.5)
[2020-08-27] MEDS ORDERED: NORMAL SALINE 250 ML IV PRN ×2 (08:08)
--- NOTE | 2020-08-27 08:24 | PDOC PROGRESS REPORT ---
Subjective Progress Note for:: 08/27/20 Subjective:: Patient is awake, sitting up in bed eating her breakfast. She states that she feels she is getting somewhat stronger, but still worried that she will be able to take care of herself at home on discharge. Her bowels are moving well. She denies any dyspnea or pain. Reason For Visit: DIVERTICULITIS Physical Exam Vital Signs: Temp Pulse Resp BP Pulse Ox 98.2 F 81 16 119/59 L 100 08/27/20 07:20 08/27/20 07:20 08/27/20 07:20 08/27/20 07:20 08/27/20 07:20 Intake & Output 08/26/20 08/27/20 08/28/20 06:59 06:59 06:59 Intake Total 1260 1266 50 Output Total 450 Balance 810 1266 50 Weight 71.6 kg 73.9 kg General appearance: PRESENT: no acute distress Head exam: PRESENT: normocephalic Eye exam: PRESENT: EOMI Respiratory exam: PRESENT: unlabored Extremities exam: ABSENT: pedal edema Musculoskeletal exam: PRESENT: normal inspection Neurological exam: PRESENT: alert, awake, oriented to person, oriented to place, oriented to time, oriented to situation Psychiatric exam: PRESENT: appropriate affect Skin exam: PRESENT: normal color Results Laboratory Results: 08/27/20 05:16 08/25/20 06:10 08/27/20 05:16 WBC 1.3 L* RBC 2.51 L Hgb 7.5 L Hct 21.2 L MCV 84 MCH 29.9 MCHC 35.4 RDW 15.2 H Plt Count 8 L* Seg Neutrophils % Not Reportable 08/20/20 08/21/20 22:15 01:19 Troponin I 0.143 0.235 Impressions: Chest X-Ray 08/20/20 22:33 IMPRESSION: No definite pneumonia. Abdomen/Pelvis CT 08/20/20 23:48 IMPRESSION: Mid descending colonic diverticulitis. Recommend follow-up colonoscopy to exclude an underlying mass. Chest/Abdomen CTA 08/21/20 02:34 IMPRESSION: 1. Patchy peripheral groundglass opacities in the right lung. Imaging features can be seen with viral pneumonia, though are nonspecific and can occur with a variety of infectious and noninfectious processes. [PneInd] Reference: https://pubs.rsna.org/doi/full/10.1148/ryct.0294130905 2. Cardiomegaly with coronary artery atherosclerosis. 3. No pulmonary embolus. This exam was performed according to our departmental dose-optimization program, which includes automated exposure control, adjustment of the mA and/or kV according to patient size and/or use of iterative reconstruction technique. Assessment & Plan - Diagnosis (1) Acute diverticulitis Is this a current diagnosis for this admission?: Yes Plan: Continues antibiotics per primary team. 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 Supportive care only (4) Pancytopenia Is this a current diagnosis for this admission?: Yes Plan: I will transfuse pRBCs and platelet today. Patient was receiving outpatient transfusions prior to admission and will need to continue these after discharge as well. - Time Time Spent with patient: 15-24 minutes - Plan Summary Plan Summary: I had a long discussion with patient and with her daughter, Joyce by telephone. I have explained that if she decides to be admitted to SNF for rehab, there is no family visitation and no further chemo will be possible during her rehab stay . I am not sure if she will be allowed to have blood transfusions, but this should be possible. However, if family is able to find help at home for her to be able to stay at home, then treatment could continue same as before admission. They will discuss this and decide on plan of care. I also briefly discussed Hospice services with Joyce, but I do not believe patient is ready to stop all transfusions.
[2020-08-27] MEDS: DILTIAZEM HCL 120 MG CAP.SR.24H PO SCH (09:23)
[2020-08-27] MEDS: BUPROPION 150 MG PO SCH (09:23)
--- NOTE | 2020-08-27 17:35 | PDOC PROGRESS REPORT ---
Subjective Progress Note for:: 08/27/20 Subjective:: Patient is awake, sitting upright in her chair resting comfortably. She is receiving platelet transfusions at the time of discussion. Denies pain. Reports improvement in abdominal pain. Provides me with no concerns or complaints at this time. Reason For Visit: DIVERTICULITIS Physical Exam Vital Signs: Temp Pulse Resp BP Pulse Ox 97.6 F 86 16 139/56 H 91 L 08/27/20 15:44 08/27/20 15:44 08/27/20 15:44 08/27/20 15:44 08/27/20 15:44 Intake & Output 08/26/20 08/27/20 08/28/20 06:59 06:59 06:59 Intake Total 1260 1266 507 Output Total 450 Balance 810 1266 507 Weight 71.6 kg 73.9 kg General appearance: PRESENT: no acute distress, cooperative, well-developed Head exam: PRESENT: atraumatic, normocephalic Eye exam: PRESENT: EOMI Mouth exam: PRESENT: moist, tongue midline Neck exam: PRESENT: full ROM. ABSENT: tenderness Respiratory exam: PRESENT: clear to auscultation mayte, symmetrical, unlabored. ABSENT: crackles, rales, wheezes Cardiovascular exam: PRESENT: irregular rhythm, +S1, +S2, systolic murmur - 2/6 GI/Abdominal exam: PRESENT: normal bowel sounds, soft. ABSENT: distended, firm, tenderness Extremities exam: ABSENT: pedal edema Musculoskeletal exam: PRESENT: ambulatory, full ROM. ABSENT: deformity, dislocation Neurological exam: PRESENT: alert, awake, oriented to person, oriented to place, oriented to time, oriented to situation, CN II-XII grossly intact Psychiatric exam: PRESENT: appropriate affect Skin exam: PRESENT: dry, intact, warm Results Laboratory Results: 08/27/20 05:16 08/25/20 06:10 08/27/20 08/27/20 05:16 09:30 WBC 1.3 L* RBC 2.51 L Hgb 7.5 L Hct 21.2 L MCV 84 MCH 29.9 MCHC 35.4 RDW 15.2 H Plt Count 8 L* Seg Neutrophils % Not Reportable Blood Type A POSITIVE Antibody Screen NEGATIVE 08/20/20 08/21/20 22:15 01:19 Troponin I 0.143 0.235 Impressions: Chest X-Ray 08/20/20 22:33 IMPRESSION: No definite pneumonia. Abdomen/Pelvis CT 08/20/20 23:48 IMPRESSION: Mid descending colonic diverticulitis. Recommend follow-up colonoscopy to exclude an underlying mass. Chest/Abdomen CTA 08/21/20 02:34 IMPRESSION: 1. Patchy peripheral groundglass opacities in the right lung. Imaging features can be seen with viral pneumonia, though are nonspecific and can occur with a variety of infectious and noninfectious processes. [PneInd] Reference: https://pubs.rsna.org/doi/full/10.1148/ryct.6925691233 2. Cardiomegaly with coronary artery atherosclerosis. 3. No pulmonary embolus. This exam was performed according to our departmental dose-optimization program, which includes automated exposure control, adjustment of the mA and/or kV according to patient size and/or use of iterative reconstruction technique. 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 Is this a current diagnosis for this admission?: Yes (3) Pancytopenia Is this a current diagnosis for this admission?: Yes (4) Hypotension Qualifiers: Hypotension type: unspecified hypotension type Qualified Code(s): I95.9 - Hypotension, unspecified Is this a current diagnosis for this admission?: Yes (5) Bacteremia Is this a current diagnosis for this admission?: Yes (6) Longstanding persistent atrial fibrillation Is this a current diagnosis for this admission?: Yes (7) Sepsis Qualifiers: Sepsis type: sepsis due to unspecified organism Sepsis acute organ dysfunction status: with acute organ dysfunction Severe sepsis acute organ dysfunction type: unspecified Severe sepsis shock status: with septic shock Qualified Code(s): A41.9 - Sepsis, unspecified organism; R65.21 - Severe sepsis with septic shock Is this a current diagnosis for this admission?: Yes - Plan Summary Summary: 08/23/2020 Patient transferred from the ICU last night. History of chemotherapy for leukemia. Acute diverticulitis-initially on Levaquin and metronidazole. Changed to Zyvox I believe when the blood cultures turn positive. Bacteremia with staph epidermidis-possibly a contaminant. Difficult to know without repeat blood cultures. Certainly Zyvox would cover the possibility. 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 She is getting chemotherapy. The chemotherapy likely induced the pancytopenia. This was exacerbated by an episode of diverticulitis. Sepsis-by definition the patient meets criteria for sepsis. She required pressors, had an elevated bilirubin of 1.9 and exhibited severe thrombocytopenia. Sepsis has resolved with antibiotics and fluids. Pancytopenia-secondary to chemotherapy then exacerbated by diverticulitis. The patient did receive platelets and 2 units of leukocyte reduced red blood cells. Unfortunately her counts are still poor. Today her white blood cell count was 0.8 with a hemoglobin of 8.3 and a platelet count of 28. Oncology continues to follow. Clearly she will not be getting the next scheduled chemotherapy treatment. 08/24/2020 Diverticulitis-the patient was on Zyvox likely for the positive blood cultures. There is no gram-negative coverage. Based on the sensitivities of the blood cultures I am changing to Unasyn as this will cover much of the diverticulitis as well as the blood cultures. Pancytopenia-the white blood cell count is 0.9 up from 0.8 and the platelets are 23 down from 28. There is no bleeding. We will repeat a CBC tomorrow. Will defer to oncology with regard to transfusion cutoffs. Atrial fibrillation-good rate control with diltiazem. No anticoagulation due to thrombocytopenia 08/25/2020 Diverticulitis-doing well on Unasyn. Pancytopenia-white blood cell count up slightly but platelet count down again. No evidence of bleeding. Await Dr. Ocampo's visit regarding additional transfusions or just close monitoring. Atrial fibrillation-good rate control. Continue current regimen The patient briefly discussed home versus skilled facility. With regard to her pancytopenia she would be at serious risk of infection in a facility. Home with home health would be a safer option. She does live alone and that could be an issue. Children are close enough to visit regularly. 08/26/2020 Diverticulitis-continue Unasyn. End of treatment 08/31/2020 Pancytopenia-hemoglobin stable, white blood cell count improving and platelets decreasing. Recheck CBC in the morning. Will transfuse platelets if platelet count less than 10,000 or signs of bleeding. Atrial fibrillation-good control at rest. Increased rate with exertion. Limited by blood pressure with regard to increasing diltiazem dose. Deconditioning-physical therapy has seen the patient. The patient did discuss possible short-term rehab. We will need to review this with her immunocompromise state. 08/27/2020 Diverticulitis: Continue Unasyn. Treatment start date: 08/23, scheduled end date 08/31. Pancytopenia: White blood cell count 1.3. Hemoglobin 7.5. Blood count 8. Patient followed by Dr. Chambers, oncology, case discussed and note reviewed. Initiate treatment with platelet and PRBC transfusions. Pt with history of routine platelet transfusion for therapy. Continue to monitor. Leukemia: Pt with immunocompromised state, on chemotherapy. Plan to discuss goals of care with patient and her family. Consider home hospice vs short-term rehab less likely due to current state and inability to give chemotherapy tx. Deconditioning: Seen by PT. Consider home health PT. Consider Hospice. AFib: Cnt to be well controlled at rest. Cnt current treatment. Plan to d/c patient once we stabilize plt count and after goals of care discussion. - Time Time Spent with patient: 15-24 minutes Medications reviewed and adjusted accordingly: Yes Anticipated Discharge Disposition: Home with Home Health - vs hospice vs SNF Anticipated Discharge Timeframe: within 24 hours - -48 hours
[2020-08-28 00:41] LABS: HEMATOCRIT 28.9 % (36.0-47.0); MEAN CORPUSCULAR HEMOGLOBIN 30.3 pg (27.0-33.4); MEAN CORPUSCULAR HGB CONC 35.8 g/dL (32.0-36.0); MEAN CORPUSCULAR VOLUME 85 fl (80-97); RED BLOOD COUNT 3.42 10^6/uL (3.72-5.28); RED CELL DISTRIBUTION WIDTH 14.6 % (11.5-14.0); WHITE BLOOD COUNT 2.3 10^3/uL (4.0-10.5)
[2020-08-28 00:44] LABS: HEMOGLOBIN 10.3 g/dL (12.0-15.5); PLATELET COUNT 37 10^3/uL (150-450)
[2020-08-28 01:09] LABS: ABSOLUTE LYMPHOCYTES# (MANUAL) 1.4 10^3/uL (0.5-4.7); ABSOLUTE MONOCYTES # (MANUAL) 0.4 10^3/uL (0.1-1.4); BAND NEUTROPHILS % (MANUAL) 9 % (3-5); BASOPHILS % (MANUAL) 0 % (0-2); EOSINOPHILS % (MANUAL) 0 % (0-6); IMMATURE MONONUCLEAR% (MANUAL) 2 % (0); LYMPHOCYTES % (MANUAL) 47 % (13-45); MONOCYTES % (MANUAL) 17 % (3-13); SEGMENTED NEUTROPHILS % (MAN) 11 % (42-78); TOTAL CELLS COUNTED 100
[2020-08-28 01:11] LABS: PLATELET COMMENT DECREASED; RBC MORPHOLOGY COMMENT NORMO-CYTIC/CHROMIC
[2020-08-28] MEDS: PANTOPRAZOLE SODIUM 40 MG TABLET.DR PO SCH (05:11)
[2020-08-28] MEDS: AMPICILLIN SODIUM/SULBACTAM NA 1.5 GM in NORMAL SALINE 50 ML IV SCH ×3 (05:11)
[2020-08-28] MEDS: SUCRALFATE 1 GM TABLET PO SCH ×2 (05:11→14:20)
[2020-08-28 05:29] LABS: HEMATOCRIT 29.1 % (36.0-47.0); HEMOGLOBIN 10.2 g/dL (12.0-15.5); MEAN CORPUSCULAR HEMOGLOBIN 30.2 pg (27.0-33.4); MEAN CORPUSCULAR HGB CONC 35.3 g/dL (32.0-36.0); MEAN CORPUSCULAR VOLUME 86 fl (80-97); RED CELL DISTRIBUTION WIDTH 14.9 % (11.5-14.0); WHITE BLOOD COUNT 2.1 10^3/uL (4.0-10.5)
[2020-08-28 05:33] LABS: PLATELET COUNT 34 10^3/uL (150-450)
[2020-08-28 05:51] LABS: ABSOLUTE LYMPHOCYTES# (MANUAL) 1.4 10^3/uL (0.5-4.7); ABSOLUTE MONOCYTES # (MANUAL) 0.3 10^3/uL (0.1-1.4); BAND NEUTROPHILS % (MANUAL) 5 % (3-5); BASOPHILS % (MANUAL) 0 % (0-2); EOSINOPHILS % (MANUAL) 0 % (0-6); IMMATURE MONONUCLEAR% (MANUAL) 2 % (0); LYMPHOCYTES % (MANUAL) 50 % (13-45); MONOCYTES % (MANUAL) 16 % (3-13); SEGMENTED NEUTROPHILS % (MAN) 10 % (42-78); TOTAL CELLS COUNTED 100
[2020-08-28] MEDS: DIPHENHYDRAMINE HCL 25 MG/10 ML UDC PO SCH ×2 (05:52→14:24)
[2020-08-28 05:54] LABS: ANISOCYTOSIS SLIGHT; PLATELET COMMENT DECREASED; TOXIC VACUOLATION PRESENT
--- NOTE | 2020-08-28 08:11 | PDOC PROGRESS REPORT ---
Subjective Progress Note for:: 08/28/20 Subjective:: Patient states that she needs to brush her teeth and put them in this morning. She has no new complaints. She was able to walk a bit yesterday. She denies any pain. She spoke with her family and now does NOT want to go to rehab. She is requesting home health services. Reason For Visit: DIVERTICULITIS Physical Exam Vital Signs: Temp Pulse Resp BP Pulse Ox 99.2 F 83 18 146/61 H 100 08/27/20 22:53 08/28/20 02:00 08/27/20 22:53 08/27/20 22:53 08/27/20 22:53 Intake & Output 08/27/20 08/28/20 08/29/20 06:59 06:59 06:59 Intake Total 1266 2491 Balance 1266 2491 Weight 73.9 kg 74.1 kg General appearance: PRESENT: no acute distress, well-developed, well-nourished Head exam: PRESENT: normocephalic Eye exam: PRESENT: EOMI Teeth exam: PRESENT: edentulous Respiratory exam: PRESENT: unlabored Musculoskeletal exam: PRESENT: normal inspection Neurological exam: PRESENT: alert, awake, oriented to person, oriented to place, oriented to situation Psychiatric exam: PRESENT: appropriate affect Skin exam: PRESENT: normal color Results Laboratory Results: 08/28/20 04:47 08/25/20 06:10 08/27/20 08/28/20 08/28/20 09:30 00:19 04:47 WBC 2.3 L 2.1 L RBC 3.42 L 3.40 L Hgb 10.3 L D 10.2 L Hct 28.9 L 29.1 L MCV 85 86 MCH 30.3 30.2 MCHC 35.8 35.3 RDW 14.6 H 14.9 H Plt Count 37 L D 34 L Seg Neutrophils % Not Reportable Not Reportable Blood Type A POSITIVE Antibody Screen NEGATIVE 08/20/20 08/21/20 22:15 01:19 Troponin I 0.143 0.235 Impressions: Chest X-Ray 08/20/20 22:33 IMPRESSION: No definite pneumonia. Abdomen/Pelvis CT 08/20/20 23:48 IMPRESSION: Mid descending colonic diverticulitis. Recommend follow-up colonoscopy to exclude an underlying mass. Chest/Abdomen CTA 08/21/20 02:34 IMPRESSION: 1. Patchy peripheral groundglass opacities in the right lung. Imaging features can be seen with viral pneumonia, though are nonspecific and can occur with a variety of infectious and noninfectious processes. [PneInd] Reference: https://pubs.rsna.org/doi/full/10.1148/ryct.3149581585 2. Cardiomegaly with coronary artery atherosclerosis. 3. No pulmonary embolus. This exam was performed according to our departmental dose-optimization program, which includes automated exposure control, adjustment of the mA and/or kV according to patient size and/or use of iterative reconstruction technique. 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 She will discuss further chemo with Dr. Sr in [place] on discharge. (4) Pancytopenia Is this a current diagnosis for this admission?: Yes Plan: s/p transfusions yesterday. I would like to change her daily labs to twice weekly and transfuse for HGB <8 and PLT <10. This would continue as outpatient as well. I do not expect her ANC to recover any further. (5) Bacteremia Is this a current diagnosis for this admission?: Yes Plan: As per primary team. If ABX can be changed to PO, I believe patient is safe for discharge. She may need HHN with PT as outpatient. - Time Time Spent with patient: Less than 15 minutes
[2020-08-28 08:38] LABS: ANION GAP 6 (5-19); BLOOD UREA NITROGEN 22 mg/dL (7-20); CALCIUM 8.2 mg/dL (8.4-10.2); CARBON DIOXIDE 25 mmol/L (22-30); CHLORIDE 100 mmol/L (98-107); GLUCOSE 102 mg/dL (75-110); POTASSIUM 3.9 mmol/L (3.6-5.0)
[2020-08-28] MEDS: BUPROPION 150 MG PO SCH (08:53)
[2020-08-28] MEDS ORDERED: DILTIAZEM HCL 180 MG CAPSULE.CR PO SCH (10:00)
[2020-08-28] MEDS ORDERED: POLYETHYLENE GLYCOL 3350 POWDER 17 GM/1 PACKET PO ONE ×2 (11:26→14:15)
[2020-08-28] MEDS ORDERED: DILTIAZEM HCL 60 MG TABLET PO ONE ×2 (12:14→14:15)
[2020-08-28] MEDS ORDERED: FUROSEMIDE INJ/PF 20 MG/2 ML SDV IV ONE (14:00)
[2020-08-28] MEDS ORDERED: AMOXICILLIN TR/POT CLAVULANATE 875-125 MG TAB PO SCH (14:00)
--- NOTE | 2020-08-28 15:36 | ADVANCED CARE ---
- Diagnosis (1) Leukemia Diagnosis Current: Yes (2) Pancytopenia Diagnosis Current: Yes (3) Transfusion-dependent anemia Diagnosis Current: Yes Attendance: Patient and daughter, Joyce Walters Resuscitation Status: Do Not Resuscitate Discussion: Had extensive discuss with patient, her daughter, and her oncologist, Dr. Sr. 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 Her transfusion dependence has been steadily becoming more severe over the last few months. She has been getting palliative chemotherapy in an effort to decrease her transfusion dependence, although the chemotherapy has not seemed to make much of a difference despite having finished 2 rounds at this point. Chemotherapy course has been further complicated by prolonged hospitalization, infection, worsening weakness, nausea, etc. Discussed with patient and family that Ms. Arias is clearly declining physically. She is frail, debilitated, weak and at high risk for falls. She is so weak that it is difficult to make it to her oncology appointments once a week. She has very poor prognosis and likely has weeks to months left to live (this has been previously discussed with patient/family by their oncologist). They seem to understand that the situation is dire. They would like to speak with Dr. Sr next week before making any decisions re: stopping chemotherapy altogether. For now, chemotherapy is stopped due to infection, and they will have to decide if they would like to restart in the future at the same dose, a lower dose, or to stop chemotherapy altogether. They also would like to discuss as a family whether to pursue home hospice services, but for now would like to get home healthcare for PT/OT to see if it can help Ms. Arias improve her st rength/mobility. I think this is a reasonable plan. They will see Dr. Sr within 1 week for further discussions. Time Spent: >30 minutes
--- NOTE | 2020-08-28 15:52 | RADIOLOGY REPORT (SQ) ---
EXAM DESCRIPTION: CHEST SINGLE VIEW IMAGES COMPLETED DATE/TIME: 08/28/2020 1:24 pm REASON FOR STUDY: shortness of breath COMPARISON: CT angio chest 08/21/2020 Chest films 08/20/2020 EXAM PARAMETERS: NUMBER OF VIEWS: One view. TECHNIQUE: Single frontal radiographic view of the chest acquired. RADIATION DOSE: NA LIMITATIONS: None. FINDINGS: LUNGS AND PLEURA: No opacities, masses or pneumothorax. No pleural effusion. 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 Calcified mitral annulus BONES: No acute findings. HARDWARE: None in the chest. OTHER: No other significant finding. IMPRESSION: No acute findings TECHNICAL DOCUMENTATION: JOB ID: [id number] [employer]- All Rights Reserved Reading location - IP/workstation name: [email or web address]
--- NOTE | 2020-08-28 16:45 | PDOC DISCHARGE SUMMARY ---
Impression - Admit/DC Date/PCP Admission Date/Primary Care Provider: 08/21/20 03:49 Discharge Date: 08/28/20 - Discharge Diagnosis (1) Acute diverticulitis Is this a current diagnosis for this admission?: Yes (2) Leukemia Is this a current diagnosis for this admission?: Yes (3) Pancytopenia Is this a current diagnosis for this admission?: Yes (4) Hypotension Is this a current diagnosis for this admission?: Yes (5) Bacteremia Is this a current diagnosis for this admission?: Yes (6) Longstanding persistent atrial fibrillation Is this a current diagnosis for this admission?: Yes (7) Sepsis Is this a current diagnosis for this admission?: Yes - Assessment Summary: 08/23/2020 Patient transferred from ICU 08/22. . History of chemotherapy for leukemia. Acute diverticulitis-initially on Levaquin and metronidazole. Changed to Zyvox I believe when the blood cultures turn positive. Bacteremia with staph epidermidis-possibly a contaminant. Difficult to know without repeat blood cultures. Certainly Zyvox would cover the possibility. 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 She is getting chemotherapy. The chemotherapy likely induced the pancytopenia. This was exacerbated by an episode of diverticulitis. Sepsis-by definition the patient meets criteria for sepsis. She required pressors, had an elevated bilirubin of 1.9 and exhibited severe thrombocytopenia. Sepsis has resolved with antibiotics and fluids. Pancytopenia-secondary to chemotherapy then exacerbated by diverticulitis. The patient did receive platelets and 2 units of leukocyte reduced red blood cells. Unfortunately her counts are still poor. Today her white blood cell count was 0.8 with a hemoglobin of 8.3 and a platelet count of 28. Oncology continues to follow. Clearly she will not be getting the next scheduled chemotherapy treatment. 08/24/2020 Diverticulitis-the patient was on Zyvox likely for the positive blood cultures. There is no gram-negative coverage. Based on the sensitivities of the blood cultures I am changing to Unasyn as this will cover much of the diverticulitis as well as the blood cultures. Pancytopenia-the white blood cell count is 0.9 up from 0.8 and the platelets are 23 down from 28. There is no bleeding. We will repeat a CBC tomorrow. Will defer to oncology with regard to transfusion cutoffs. Atrial fibrillation-good rate control with diltiazem. No anticoagulation due to thrombocytopenia 08/25/2020 Diverticulitis-doing well on Unasyn. Pancytopenia-white blood cell count up slightly but platelet count down again. No evidence of bleeding. Await Dr. Ocampo's visit regarding additional transfusions or just close monitoring. Atrial fibrillation-good rate control. Continue current regimen The patient briefly discussed home versus skilled facility. With regard to her pancytopenia she would be at serious risk of infection in a facility. Home with home health would be a safer option. She does live alone and that could be an issue. Children are close enough to visit regularly. 08/26/2020 Diverticulitis-continue Unasyn. End of treatment 08/31/2020 Pancytopenia-hemoglobin stable, white blood cell count improving and platelets decreasing. Recheck CBC in the morning. Will transfuse platelets if platelet c ount less than 10,000 or signs of bleeding. Atrial fibrillation-good control at rest. Increased rate with exertion. Limited by blood pressure with regard to increasing diltiazem dose. Deconditioning-physical therapy has seen the patient. The patient did discuss possible short-term rehab. We will need to review this with her immunocompromise state. 08/27/2020 Diverticulitis: Continue Unasyn. Treatment start date: 08/23, scheduled end date 08/31. Pancytopenia: White blood cell count 1.3. Hemoglobin 7.5. Blood count 8. Patient followed by Dr. Chambers, oncology, case discussed and note reviewed. Initiate treatment with platelet and PRBC transfusions. Pt with history of routine platelet transfusion for therapy. Continue to monitor. Leukemia: Pt with immunocompromised state, on chemotherapy. Plan to discuss goals of care with patient and her family. Consider home hospice vs short-term rehab less likely due to current state and inability to give chemotherapy tx. Deconditioning: Seen by PT. Consider home health PT. Consider Hospice. AFib: Cnt to be well controlled at rest. Cnt current treatment. Plan to d/c patient once we stabilize plt count and after goals of care discussion. - Additional Information Resuscitation Status: Do Not Resuscitate Discharge Diet: As Tolerated Discharge Activity: Activity As Tolerated Referrals: RICHAR BECK MD [ACTIVE STAFF] - Follow up as needed Prescriptions: Amoxicillin/Potassium Clav [Augmentin 875-125 Tablet] 1 tab PO Q12 3 Days #6 tablet Diltiazem HCl [Cardizem Cd 240 mg Capsule.cr] 240 mg PO DAILY #60 capsule.cr Home Medications: Bupropion HCl [Wellbutrin Xl 150 mg 24hr Tablet] 150 mg PO DAILY 03/30/12 Olopatadine HCl [Patanase] 2 spray NS BID 03/30/12 Rabeprazole Sodium [Aciphex] 20 mg PO DAILY 06/04/12 Ondansetron HCl [Zofran] 4 mg PO Q8HP PRN 08/21/20 Amoxicillin/Potassium Clav [Augmentin 875-125 Tablet] 1 tab PO Q12 3 Days #6 tablet 08/28/20 Diltiazem HCl [Cardizem Cd 240 mg Capsule.cr] 240 mg PO DAILY #60 capsule.cr 08/28/20 History of Present Illiness History of Present Illness: As per admitting HPI "89-year-old female that comes from home by EMS for chief complaint of vomiting, diarrhea, nicky pain, passing out at home. Patient was initially hypotensive in the 70s, EMS gave 1 L bolus of normal saline and started her on Levophed. Upon arrival nursing staff has stopped Levophed and systolic blood pressure is in the 90s. She denies any other complaints. Patient has a history of leukemia, she is on oral chemotherapy, she states she has not eaten anything for the past 3 days because she has no appetite, she states that she vomited once yesterday and then started vomiting again this evening, she states that she felt constipated and bloated so she took some MiraLAX today as well, she states she started having diarrhea and had multiple episodes tonight. She states she passed out briefly on the toilet but denies falling off the toilet or injury. She denies chest pain, fever. She has generalized abdominal soreness with some increased tenderness on the left side. Only other reported past medical history of hypertension, she follows with Dr. Sr in [place] (oncology)." Hospital Course Hospital Course: Patient was admitted to the ICU for evaluation and treatment of sepsis secondary to acute diverticulitis. Initially patient required pressors while in ICU, though blood pressure recovered and sepsis resolved with antibiotics and fluids. Initial treatment of the diverticulitis included Levaquin and metronidazole. At this was initially changed to Zyvox secondary to bacteremia with staph epidermidis. Antibiotics were inevitably changed to a Unasyn for broader coverage of diverticulitis as well as blood cultures. She received 5 days of a Unasyn treatment this was then transitioned to Augmentin by mouth which she used to complete 3-day prescription of Augmentin twice daily. Patient with history of leukemia. She is followed by Dr. Sr, oncology, who is treating leukemia with chemotherapy. She was found to have pancytopenia. Patient was followed by Dr. Bose, oncology, over course of visit. Pancytopenia became so severe that she required platelet and red blood cell transfusions. Notable improvement following transfusion. Patient is going to continue with weekly follow-ups with her oncologist Dr. Sr. Next scheduled follow-up appointment 09/04/2020. Patient with longstanding history of atrial fibrillation with notable increase in heart rate greater than 120 on several occasions during hospitalization. Her home dose diltiazem of 120 mg was increased to 180 mg and inevitably increased to 240 with appropriate control of heart rate. I will discharge her home on 240 mg 5 diltiazem daily. Over the course of her visit she did not receive her hypertensive medications including losartan due to her low blood pressures though her blood pressures have normalized and are currently in the 120s over 80s I do not feel that she needs to continue with losartan therapy. Patient was made aware of this and has agreed to discontinue losartan use at this time. Physical Exam Vital Signs: Temp Pulse Resp BP Pulse Ox 98.3 F 108 H 16 124/62 97 08/28/20 14:58 08/28/20 14:58 08/28/20 14:58 08/28/20 14:58 08/28/20 14:58 Intake & Output 08/27/20 08/28/20 08/29/20 06:59 06:59 06:59 Intake Total 1266 2491 100 Balance 1266 2491 100 Weight 73.9 kg 74.1 kg Additional comments: General appearance: PRESENT: no acute distress, cooperative, well-developed Head exam: PRESENT: atraumatic, normocephalic Eye exam: PRESENT: EOMI Mouth exam: PRESENT: moist, tongue midline Neck exam: PRESENT: full ROM. ABSENT: tenderness Respiratory exam: PRESENT: clear to auscultation mayte, symmetrical, unlabored. ABSENT: crackles, rales, wheezes Cardiovascular exam: PRESENT: irregular rhythm, +S1, +S2, systolic murmur - 2/6 GI/Abdominal exam: PRESENT: normal bowel sounds, soft. ABSENT: distended, firm, tenderness Extremities exam: ABSENT: pedal edema Musculoskeletal exam: PRESENT: ambulatory, full ROM. ABSENT: deformity, dislocation Neurological exam: PRESENT: alert, awake, oriented to person, oriented to place, oriented to time, oriented to situation, CN II-XII grossly intact Psychiatric exam: PRESENT: appropriate affect Skin exam: PRESENT: dry, intact, warm Results Laboratory Results: WBC 2.1 10^3/uL (4.0-10.5) L 08/28/20 04:47 RBC 3.40 10^6/uL (3.72-5.28) L 08/28/20 04:47 Hgb 10.2 g/dL (12.0-15.5) L 08/28/20 04:47 Hct 29.1 % (36.0-47.0) L 08/28/20 04:47 MCV 86 fl (80-97) 08/28/20 04:47 MCH 30.2 pg (27.0-33.4) 08/28/20 04:47 MCHC 35.3 g/dL (32.0-36.0) 08/28/20 04:47 RDW 14.9 % (11.5-14.0) H 08/28/20 04:47 Plt Count 34 10^3/uL (150-450) L 08/28/20 04:47 Lymph % (Auto) Not Reportable 08/28/20 04:47 Cuming % (Auto) Not Reportable 08/28/20 04:47 Eos % (Auto) Not Reportable 08/28/20 04:47 Baso % (Auto) Not Reportable 08/28/20 04:47 Absolute Neuts (auto) Not Reportable 08/28/20 04:47 Absolute Lymphs (auto) Not Reportable 08/28/20 04:47 Absolute Monos (auto) Not Reportable 08/28/20 04:47 Absolute Eos (auto) Not Reportable 08/28/20 04:47 Absolute Basos (auto) Not Reportable 08/28/20 04:47 Total Counted 100 08/28/20 04:47 Seg Neutrophils % Not Reportable 08/28/20 04:47 Seg Neuts % (Manual) 10 % (42-78) L 08/28/20 04:47 Band Neutrophils % 5 % (3-5) 08/28/20 04:47 Lymphocytes % (Manual) 50 % (13-45) H 08/28/20 04:47 Atypical Lymphs % 17 % (0) 08/28/20 04:47 Monocytes % (Manual) 16 % (3-13) H 08/28/20 04:47 Eosinophils % (Manual) 0 % (0-6) 08/28/20 04:47 Basophils % (Manual) 0 % (0-2) 08/28/20 04:47 Metamyelocytes % 2 % (0-1) H 08/23/20 05:37 Myelocytes % 1 % (0) H 08/23/20 05:37 Promyelocytes % 1 % (0) H 08/23/20 05:37 Immature Leukocytes % 2 % (0) H 08/28/20 04:47 Abs Neuts (Manual) 0.3 10^3/uL (1.7-8.2) L 08/28/20 04:47 Abs Lymphs (Manual) 1.4 10^3/uL (0.5-4.7) 08/28/20 04:47 Abs Monocytes (Manual) 0.3 10^3/uL (0.1-1.4) 08/28/20 04:47 Absolute Eos (Manual) 0.0 10^3/uL (0.0-0.6) 08/28/20 04:47 Abs Basophils (Manual) 0.0 10^3/uL (0.0-0.2) 08/28/20 04:47 Toxic Granulation 1+ 08/27/20 05:16 Toxic Vacuolation PRESENT 08/28/20 04:47 Platelet Comment DECREASED 08/28/20 04:47 Polychromasia SLIGHT 08/26/20 04:18 Poikilocytosis 1+ 08/27/20 05:16 Anisocytosis SLIGHT 08/28/20 04:47 Microcytosis SLIGHT 08/24/20 05:56 Spherocytes SLIGHT 08/24/20 05:56 Tear Drop Cells SLIGHT 08/27/20 05:16 Ovalocytes 1+ 08/27/20 05:16 Haja Cells SLIGHT 08/24/20 05:56 Acanthocytes (Spur) 1+ 08/27/20 05:16 Rouleaux 1+ 08/22/20 03:42 Schistocytes SLIGHT 08/20/20 22:15 RBC Morph Comment NORMO-CYTIC/CHROMIC 08/28/20 00:19 VBG pH 7.37 (7.30-7.42) 08/20/20 22:41 VBG pCO2 37.4 mmHg (35-63) 08/20/20 22:41 VBG HCO3 21.3 mmol/L (20-32) 08/20/20 22:41 VBG Base Excess -3.6 mmol/L 08/20/20 22:41 Sodium 131.3 mmol/L (137-145) L 08/28/20 04:47 Potassium 3.9 mmol/L (3.6-5.0) 08/28/20 04:47 Chloride 100 mmol/L (98-107) 08/28/20 04:47 Carbon Dioxide 25 mmol/L (22-30) 08/28/20 04:47 Anion Gap 6 (5-19) 08/28/20 04:47 BUN 22 mg/dL (7-20) H 08/28/20 04:47 Creatinine 0.67 mg/dL (0.52-1.25) 08/28/20 04:47 Est GFR ( Amer) > 60 (>60) 08/28/20 04:47 Est GFR (MDRD) Non-Af > 60 (>60) 08/28/20 04:47 Glucose 102 mg/dL (75-110) 08/28/20 04:47 Lactic Acid 1.0 mmol/L (0.7-2.1) 08/21/20 01:58 Uric Acid 4.6 mg/dL (2.5-7.5) 08/20/20 22:15 Calcium 8.2 mg/dL (8.4-10.2) L 08/28/20 04:47 Phosphorus 3.1 mg/dL (2.5-4.5) 08/24/20 05:56 Magnesium 2.3 mg/dL (1.6-2.3) 08/25/20 06:10 Total Bilirubin 0.8 mg/dL (0.2-1.3) 08/24/20 05:56 Direct Bilirubin 0.1 mg/dL (0.0-0.4) 08/24/20 05:56 Neonat Total Bilirubin Not Reportable 08/24/20 05:56 Neonat Direct Bilirubin Not Reportable 08/24/20 05:56 Neonat Indirect Bili Not Reportable 08/24/20 05:56 AST 19 U/L (14-36) 08/24/20 05:56 ALT 21 U/L (<35) 08/24/20 05:56 Alkaline Phosphatase 59 U/L (38-126) 08/24/20 05:56 Troponin I 0.235 ng/mL 08/21/20 01:19 Total Protein 4.8 g/dL (6.3-8.2) L 08/24/20 05:56 Albumin 2.6 g/dL (3.5-5.0) L 08/24/20 05:56 Lipase 18.2 U/L (23-300) L 08/20/20 22:15 TSH 2.46 uIU/mL (0.47-4.68) 08/20/20 22:15 Random Cortisol 26.10 ug/dL (None Established) 08/21/20 10:45 Urine Color YELLOW 08/21/20 01:30 Urine Appearance SLIGHTLY-CLOUDY 08/21/20 01:30 Urine pH 5.0 (5.0-9.0) 08/21/20 01:30 Ur Specific Chase 1.015 08/21/20 01:30 Urine Protein 30 mg/dL (NEGATIVE) H 08/21/20 01:30 Urine Glucose (UA) NEGATIVE mg/dL (NEGATIVE) 08/21/20 01:30 Urine Ketones TRACE mg/dL (NEGATIVE) H 08/21/20 01:30 Urine Blood SMALL (NEGATIVE) H 08/21/20 01:30 Urine Nitrite (Reflex) NEGATIVE (NEGATIVE) 08/21/20 01:30 Urine Bilirubin NEGATIVE (NEGATIVE) 08/21/20 01:30 Urine Urobilinogen 2.0 mg/dL (<2.0) H 08/21/20 01:30 Leukocyte Esterase Rfl NEGATIVE (NEGATIVE) 08/21/20 01:30 Urine RBC (Auto) 1 /HPF 08/21/20 01:30 U Hyaline Cast (Auto) 1 /LPF 08/21/20 01:30 Urine WBC (Reflex) 2 /HPF 08/21/20 01:30 Squamous Epi Cells Auto 1 /HPF 08/21/20 01:30 Amorphous Sediment Auto TRACE /HPF 08/21/20 01:30 Granular Casts (Auto) 26 /LPF 08/21/20 01:30 Urine Mucus (Auto) RARE /LPF 08/21/20 01:30 Urine Ascorbic Acid NEGATIVE (NEGATIVE) 08/21/20 01:30 Slides for Path Review SEE COMMENT 08/25/20 06:10 Blood Type A POSITIVE 08/27/20 09:30 Antibody Screen NEGATIVE 08/27/20 09:30 Crossmatch See Detail 08/27/20 09:30 08/20/20 08/21/20 22:15 01:19 Troponin I 0.143 0.235 Impressions: Chest X-Ray 08/20/20 22:33 IMPRESSION: No definite pneumonia. Abdomen/Pelvis CT 08/20/20 23:48 IMPRESSION: Mid descending colonic diverticulitis. Recommend follow-up colonoscopy to exclude an underlying mass. Chest/Abdomen CTA 08/21/20 02:34 IMPRESSION: 1. Patchy peripheral groundglass opacities in the right lung. Imaging features can be seen with viral pneumonia, though are nonspecific and can occur with a variety of infectious and noninfectious processes. [PneInd] Reference: https://pubs.rsna.org/doi/full/10.1148/ryct.[email or web address] 2. Cardiomegaly with coronary artery atherosclerosis. 3. No pulmonary embolus. This exam was performed according to our departmental dose-optimization program, which includes automated exposure control, adjustment of the mA and/or kV according to patient size and/or use of iterative reconstruction technique. Chest X-Ray 08/28/20 00:00 IMPRESSION: No acute findings Plan Plan of Treatment: Complete Augmentin therapy as prescribed. Control atrial fibrillation with increased dose of diltiazem. Follow-up with oncologist Dr. Sr for continued treatment of leukemia and pancytopenia. Time Spent: Greater than 30 Minutes Stroke Is this a Stroke Patient?: No Acute Heart Failure Is this a Heart Failure Patient?: No
[2020-08-28 17:08] VITALS: BP 134/55
[2020-08-29] MEDS ORDERED: DILTIAZEM HCL 240 MG CAPSULE.CR PO SCH (10:00)
== END 2020-08-28 17:00 | disposition home health service (06) | DRG 871 ==
LOC: ER 22:11 → EH 08-21 03:49 → ICU 08-21 08:02 → 4W 08-22 17:21
PROVIDERS: ADMIT Anesthesiology; ATTEND Physician Assistant
PROC: 30233R1 Transfusion of Nonautologous Platelets into Peripheral Vein, Percutaneous Approach (ICD-10-PCS; principal; 2020-08-21)
PROC: 30233N1 Transfusion of Nonautologous Red Blood Cells into Peripheral Vein, Percutaneous Approach (ICD-10-PCS; 2020-08-21)
PROC: 30233R1 Transfusion of Nonautologous Platelets into Peripheral Vein, Percutaneous Approach (ICD-10-PCS; 2020-08-27)
PROC: 30233N1 Transfusion of Nonautologous Red Blood Cells into Peripheral Vein, Percutaneous Approach (ICD-10-PCS; 2020-08-27)
DX: A41.9 Sepsis, unspecified organism (principal); D61.810 Antineoplastic chemotherapy induced pancytopenia; R65.21 Severe sepsis with septic shock; K57.32 Diverticulitis of large intestine without perforation or abscess without bleeding; I48.11 Longstanding persistent atrial fibrillation; C95.00 Acute leukemia of unspecified cell type not having achieved remission; Z66 Do not resuscitate; I10 Essential (primary) hypertension; K21.9 Gastro-esophageal reflux disease without esophagitis; B95.8 Unspecified staphylococcus as the cause of diseases classified elsewhere; Z60.2 Problems related to living alone; Z79.899 Other long term (current) drug therapy; Z92.21 Personal history of antineoplastic chemotherapy; Z87.891 Personal history of nicotine dependence; Z88.2 Allergy status to sulfonamides; Z88.8 Allergy status to other drugs, medicaments and biological substances; Z91.041 Radiographic dye allergy status
CPT/HCPCS: 36415; 36430; 51701; 71045; 71275; 74176; 80048; 80053; 81001; 82533; 82803; 83605; 83690; 83735; 84100; 84443; 84484; 84550; 85025; 86850; 86900; 86901; 86920; 87040; 87077; 87150; 87186; 93005; 93010; 96361; 96365; 96366; 96367; 96368; 96375; 99291; C9113; J0295; J1200; J1720; J1956; J2020; J2405; J2550; J3490; J7030; J7040; J7060; P9016; P9035